=== PATIENT | male | born 1945 | race Caucasian/White ===

== ENCOUNTER 2018-04-06 13:50 | Inpatient (IN) | payer MEDICARE, OTHER, SELFPAY ==
[2018-04-06] VITALS (18 sets, daily range): BP systolic 93–148; BP diastolic 65–87; PULSE 75–146; RESP 15–20; TEMP 36.1–36.7; O2SAT 94–99; BMI 28.5
--- NOTE | 2018-04-06 14:06 | DI.RAD.S_ITS ---
PROCEDURE: XR CHEST 1V INDICATIONS: chest pain TECHNIQUE: One view of the chest was acquired. COMPARISON: None. FINDINGS: Surgical changes and devices: None. Lungs and pleura: No pleural effusions or pneumothorax. Lungs are clear. Mediastinum: Mediastinal contours appear normal. Heart size is normal. Bones and chest wall: No suspicious bony lesions. Overlying soft tissues appear unremarkable. IMPRESSION: No acute cardiopulmonary findings. Dictated by: Darcie Pedroza M.D. on 04/06/2018 at 14:50 Approved by: Darcie Pedroza M.D. on 04/06/2018 at 14:50
--- NOTE | 2018-04-06 14:12 | ED_ITS ---
HPI - Arrhythmia/Palpitations General Chief Complaint: Arrhythmia/Palpitations Stated Complaint: TIGHTNESS IN CHEST, IRREGULAR PULSE Time Seen by Provider: 04/06/18 13:54 Source: patient Mode of arrival: ambulatory Limitations: no limitations History of Present Illness HPI narrative: Patient is a 73-year-old male with a history of atrial fibrillation and atrial flutter with multiple ablation send the past and also a cardioversion. He is on Eliquis 2 times a day. Is also on atenolol 2 times a day. Patient states that since last evening he has had intermittent chest pressure that also noticed last evening that his heart was pounding. Has also reports from his that he was complaining of palpitations approximately 1 week ago. Not exactly sure when the symptoms that he presented with today started however he does state that the chest pain started last evening. Has never had a heart attack before. 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 They called the group earlier today informed him to come to the emergency department. He states that he did take his atenolol earlier today. Related Data Home Medications Medication Instructions Recorded Confirmed apixaban [Eliquis] 10 mg PO DAILY 04/06/18 04/06/18 atenolol 25 mg PO BID 04/06/18 04/06/18 bupropion HCl 150 mg PO DAILY 04/06/18 04/06/18 escitalopram oxalate 20 mg PO DAILY 04/06/18 04/06/18 omeprazole 40 mg PO DAILY 04/06/18 04/06/18 oxycodone-acetaminophen 1 tab PO TID PRN 04/06/18 04/06/18 prednisone 40 mg PO DAILY 04/06/18 04/06/18 tamsulosin 0.4 mg PO DAILY 04/06/18 04/06/18 Allergies Allergy/AdvReac Type Severity Reaction Status Date / Time erythromycin base Allergy Unknown Verified 04/06/18 14:00 Review of Systems Constitutional Reports fatigue and Denies fever(s) Cardiovascular Reports chest pain, Denies chest pain with activity, Denies diaphoresis, Denies syncope, Reports rapid heart rate, Denies pedal edema, Reports irregular heart rhythm, Reports palpitations and Denies dyspnea Respiratory Denies cough, Denies dyspnea and Denies wheezing Gastrointestinal Gastrointestinal: Denies abdominal pain, Denies diarrhea, Denies nausea and Denies vomiting Genitourinary Denies dysuria Musculoskeletal Denies myalgias and Denies arthralgias Integumentary/Breasts Denies rash Neurologic Denies syncope Endocrine Reports fatigue and Reports palpitations Hematologic/Lymphatic Denies easy bleeding and Denies easy bruising Allergic/Immunologic Denies wheezing FOR[facility]LY [facility], [facility] Medical History Atrial fibrillation (Acute) Social History Smoking Status: Never smoker Comment: Reviewed patient's past medical surgical family and social history Exam Initial Vital Signs Initial Vital Signs: Vital Signs Pulse Rate 145 H 04/06/18 13:56 Respiratory Rate 18 04/06/18 13:56 Blood Pressure 131/87 H 04/06/18 13:56 Pulse Oximetry 99 04/06/18 13:56 Const General: cooperative, healthy appearing, comfortable, well developed, well groomed and No acute distress Orientation: alert, awake and oriented x3 HENMT Head: normal to inspection, normocephalic and atraumatic Resp Effort & Inspection: normal respiratory effort Auscultation: clear to auscultation bilaterally Cardio Rate: tachycardic Rhythm: regular rhythm Pulses: radial pulses present GI Inspection: normal to inspection and non-distended Palpation: soft, No firm and No tender Back/Spine/Pelvis Back: No CVA tenderness Skin Lesions: no lesions Rashes: no rashes Neuro General: alert, awake and oriented x3 Extrem General: normal to inspection and capillary refill normal Psych Appearance: grossly normal, well kempt and disheveled Affect: normal affect Course Orders Ordered: ED Orders 04/06/18 12:04 Complete Blood Count AUTO DIFF Stat Comprehensive Metabolic Panel Stat Lipase Stat Partial Thromboplastin Time Stat Prothrombin Time INR Stat Troponin & CK Cardiac Panel Stat 04/06/18 13:53 EKG-12 Lead Routine 04/06/18 14:06 XR chest 1V Stat EKG-12 Lead Stat Diltiazem HCl 125 mg/ Dextrose 125 mls @ 5 mls/hr IV TITRATE SANDRA; Protocol Last Admin: 04/06/18 15:22 Dose: 5 mg/hr, 5 mls/hr Discontinued Medications Aspirin (Aspirin Chew) 324 mg PO NOW ONE Stop: 04/06/18 14:53 Last Admin: 04/06/18 14:55 Dose: 324 mg Diltiazem HCl (Cardizem) 10 mg IV NOW ONE Stop: 04/06/18 15:07 Last Admin: 04/06/18 15:09 Dose: 10 mg Vital Signs - 8 hr 04/06/18 13:56 04/06/18 14:00 04/06/18 14:15 Pulse Rate 145 H 146 H 146 H Respiratory Rate 18 16 19 Blood Pressure 131/87 H Blood Pressure [Left Arm] 106/65 112/79 Pulse Oximetry 99 97 95 04/06/18 14:17 04/06/18 14:30 04/06/18 14:45 Pulse Rate 146 H 146 H 145 H Respiratory Rate 20 18 17 Blood Pressure Blood Pressure [Left Arm] 106/65 93/70 Pulse Oximetry 97 95 96 04/06/18 15:00 04/06/18 15:09 04/06/18 15:15 Pulse Rate 146 H 145 H 90 Respiratory Rate 16 16 Blood Pressure 93/70 Blood Pressure [Left Arm] 112/76 128/74 H Pulse Oximetry 96 94 04/06/18 15:30 04/06/18 15:35 04/06/18 15:42 Pulse Rate 92 H 93 H 101 H Respiratory Rate 16 15 18 Blood Pressure Blood Pressure [Left Arm] 121/79 H 132/78 H 132/78 H Pulse Oximetry 94 96 98 04/06/18 15:45 04/06/18 15:50 04/06/18 16:07 Pulse Rate 96 H 93 H 93 H Respiratory Rate 15 17 17 Blood Pressure Blood Pressure [Left Arm] 122/79 H 122/79 H Pulse Oximetry 96 97 96 04/06/18 16:16 Pulse Rate 75 Respiratory Rate 18 Blood Pressure Blood Pressure [Left Arm] 112/71 Pulse Oximetry MDM - Arrhythmia/Palpitations Lab Data Attestation: I reviewed the patient's lab results. Result diagrams: 04/06/18 12:04 04/06/18 12:04 Lab Results 04/06/18 04/06/18 04/06/18 Range/Units 12:04 12:04 12:04 WBC 16.5 H (4.5-11.0) X10^3/uL RBC 4.41 L (4.5-5.9) X10^6/uL Hgb 13.6 (13.5-17.5) g/dL Hct 41.1 (41-53) % MCV 93.0 (80-100) fL MCH 30.7 (26-34) PG MCHC 33.0 (30-36) % RDW 14.0 (11.6-14.8) % Plt Count 279 (150-400) X10^3/uL Neut % (Auto) 86.7 H (50-75) % Lymph % (Auto) 9.2 L (25-40) % Banks % (Auto) 3.4 (3-14) % Eos % (Auto) 0.2 L (2-4) % Baso % (Auto) 0.5 (0-2) % Neut # (Auto) 31804 H (0187-5164) /uL PT 12.5 (10.1-12.7) SECONDS INR 1.1 (0.9-1.3) APTT 32 (26.4-36.2) SECONDS Sodium 138 (137-145) mmol/L Potassium 4.6 (3.4-5.1) mmol/L Chloride 101 (98-107) mmol/L Carbon Dioxide 22 (22-32) mmol/L BUN 22 H (9-20) mg/dL Creatinine 0.90 (0.66-1.25) mg/dL Estimated GFR > 60.0 (>60) mL/min BUN/Creatinine Ratio 24.4 H (6-22) Glucose 178 H (80-110) mg/dL Calcium 9.4 (8.4-10.2) mg/dL Total Bilirubin 0.4 (0.2-1.3) mg/dL AST 39 (17-59) IU/L ALT 59 (21-72) IU/L Alkaline Phosphatase 64 (38-126) U/L Total Creatine Kinase 66 (55-170) U/L Troponin I 0.076 H (0.01-0.034) ng/mL Total Protein 7.3 (6.3-8.2) g/dL Albumin 4.3 (3.5-5.0) g/dL Globulin 3.0 (1.7-4.1) g/dL Albumin/Globulin Ratio 1.4 (1.0-2.8) Lipase 74 (23-300) U/L ECG Data Attestation: I personally reviewed and interpreted this ECG as follows: Prior ECG tracings: not available for review Interpretation: A flutter Ventricular rate of [address] depressions V3 V4 V5 [address] T wave changes QTC 370 QRS 108 milliseconds MDM Narrative Medical decision making narrative: I [facility] They do not have any beds today. Patient was tachycardic. His troponin was also slightly elevated however this may be a demand ischemia. The ST depressions could very well be repolarization abnormalities. Patient states that he cannot definitively say that he has been taking his Eliquis 2 times a day over the past month. There is also some question as to how long he has been in atrial flutter. There is also some question after the discussion with the gear tooth lapping machine operator if cardioversion here in the emergency department would be successful if he has been in and out of AFib/ a flutter over the past week. Will hold on cardioversion. Will opt for rate control. Because of his elevated troponin will start Cardizem. Patient also needs admitted to the hospital for trending of his troponin. I did discuss the case with Dr. Chu hospitalist who will admit the patient. Discharge Plan Departure Patient Disposition: Admitted As Inpatient Clinical Impression: Atrial flutter, Chest pain Admit Date/Time: 04/06/18 15:55 Admit Provider: Sadie Chu
[2018-04-06 14:18] LABS: Add Manual Diff / Slide Review NO; Basophils Percent Auto 0.5 % (0-2); Eosinophils Percent Auto 0.2 % (2-4); Hematocrit 41.1 % (41-53); Hemoglobin 13.6 g/dL (13.5-17.5); Lymphocytes Percent Auto 9.2 % (25-40); Mean Corpuscular Hemoglobin 30.7 PG (26-34); Monocytes Percent Auto 3.4 % (3-14); Neutrophils Absolute Auto 14300 /uL (3000-5900); Neutrophils Percent Auto 86.7 % (50-75); Platelet Count 279 X10^3/uL (150-400); Red Blood Cell Count 4.41 X10^6/uL (4.5-5.9); White Blood Cell Count 16.5 X10^3/uL (4.5-11.0)
[2018-04-06 14:27] LABS: INR 1.1 (0.9-1.3); Prothrombin Time 12.5 SECONDS (10.1-12.7)
[2018-04-06 14:29] LABS: PTT Partial Thromboplastin Tim 32 SECONDS (26.4-36.2)
[2018-04-06 14:42] LABS: Troponin I 0.076 ng/mL (0.01-0.034)
[2018-04-06 14:47] LABS: Alanine Aminotransferase 59 IU/L (21-72); Albumin 4.3 g/dL (3.5-5.0); Albumin Globulin Ratio 1.4 (1.0-2.8); Alkaline Phosphatase 64 U/L (38-126); Aspartate Aminotransferase 39 IU/L (17-59); BUN Creatinine Ratio 24.4 (6-22); Bilirubin Total 0.4 mg/dL (0.2-1.3); Blood Urea Nitrogen 22 mg/dL (9-20); Calcium 9.4 mg/dL (8.4-10.2); Carbon Dioxide 22 mmol/L (22-32); Chloride 101 mmol/L (98-107); Creatine Kinase 66 U/L (55-170); Estimated Glomerular Filt Rate > 60.0 mL/min (>60); Glucose 178 mg/dL (80-110); HEMOLYSIS < 15 (0-50); Lipase 74 U/L (23-300); Potassium 4.6 mmol/L (3.4-5.1); Sodium 138 mmol/L (137-145); Total Protein 7.3 g/dL (6.3-8.2)
[2018-04-06] MEDS: ASPIRIN 81 MG TAB 324 MG PO (14:55)
[2018-04-06] MEDS: dilTIAZem 25 MG/5 ML SDV 10 MG IV (15:09)
[2018-04-06] MEDS: dilTIAZem 125 MG in DEXTROSE 5 % IN WATER 100 ML IV (15:22)
[2018-04-06] MEDS: dilTIAZem CD 180 MG CAP PO (17:46)
--- NOTE | 2018-04-06 17:50 | PM.HP.1 ---
History of Present Illness Date Patient Seen: 04/06/18 Time Patient Seen: 17:00 Chief complaint: TIGHTNESS IN CHEST, IRREGULAR PULSE Narrative: 73-year-old man under the primary care of Dr. Ascencion Frank at [facility] who was brought to the [facility] Emergency room earlier today for palpitation and chest pain. He has history of paroxysmal atrial fibrillation/atrial flutter. He had history of cardioversion and ablations. His last cardioversion was more than a year ago. A week ago, he woke up from sleep with palpitation and chest pain in the middle of the chest. He rested and the symptoms resolved. Last night he started having palpitation. He also was having anterior chest pain. The severity of the pain was rated at 6 to 6.5/10. He did not have diaphoresis or shortness of breath. The pain lasted for more than an hour and resolved. This morning he continued to have irregular pulse and mild chest pressure. He was brought to the [facility] Emergency Room. EKG showed atrial flutter/atrial fibrillation with ventricular rate around 110. He was started on diltiazem drip and was admitted to the intensive care unit. He was recently started on oral prednisone for empiric treatment for possible temporal arteritis. He had a temporal artery biopsy last Sunday which was 4 days ago. Patient History Medical History Atrial fibrillation (Acute) Comment: Paroxysmal atrial fibrillation/atrial flutter Gout Mckeon's neuroma Kidney stone Depression PMR Obstructive sleep apnea, on CPAP Shingles Family & Social History Safety & Behavioral: Feels Safe in Current Yes Environment Been Physically Hurt or No Threatened By a Person Tobacco & Substance use: Smoking Status Never smoker alcohol intake frequency 0-2 drinks per day Substance Use Type does not use Meds Home Medications Medication Instructions Recorded Confirmed Type apixaban [Eliquis] 10 mg PO DAILY 04/06/18 04/06/18 History atenolol 25 mg PO BID 04/06/18 04/06/18 History bupropion HCl 150 mg PO DAILY 04/06/18 04/06/18 History escitalopram oxalate 20 mg PO DAILY 04/06/18 04/06/18 History omeprazole 40 mg PO DAILY 04/06/18 04/06/18 History oxycodone-acetaminophen 1 tab PO TID PRN 04/06/18 04/06/18 History prednisone 40 mg PO DAILY 04/06/18 04/06/18 History tamsulosin 0.4 mg PO DAILY 04/06/18 04/06/18 History Allergies Allergy/AdvReac Type Severity Reaction Status Date / Time erythromycin base Allergy Unknown Verified 04/06/18 14:00 Review of Systems Constitutional Comments: No fever chills or sweats Cardiovascular Cardiovascular: Reports as per HPI Respiratory Comments: No cough Gastrointestinal Comments: Denies abdominal pain. No nausea or vomiting Genitourinary Comments: Denies dysuria Musculoskeletal Comments: Chronic shoulder pain Exam Vital Signs (past 8 hours): - 04/06/18 13:56 04/06/18 14:00 04/06/18 14:15 Pulse Rate 145 H 146 H 146 H Respiratory Rate 18 16 19 Blood Pressure 131/87 H Blood Pressure [Left Arm] 106/65 112/79 Pulse Oximetry 99 97 95 04/06/18 14:17 04/06/18 14:30 04/06/18 14:45 Pulse Rate 146 H 146 H 145 H Respiratory Rate 20 18 17 Blood Pressure Blood Pressure [Left Arm] 106/65 93/70 Pulse Oximetry 97 95 96 04/06/18 15:00 04/06/18 15:09 04/06/18 15:15 Pulse Rate 146 H 145 H 90 Respiratory Rate 16 16 Blood Pressure 93/70 Blood Pressure [Left Arm] 112/76 128/74 H Pulse Oximetry 96 94 04/06/18 15:30 04/06/18 15:35 04/06/18 15:42 Pulse Rate 92 H 93 H 101 H Respiratory Rate 16 15 18 Blood Pressure Blood Pressure [Left Arm] 121/79 H 132/78 H 132/78 H Pulse Oximetry 94 96 98 04/06/18 15:45 04/06/18 15:50 04/06/18 16:07 Pulse Rate 96 H 93 H 93 H Respiratory Rate 15 17 17 Blood Pressure Blood Pressure [Left Arm] 122/79 H 122/79 H Pulse Oximetry 96 97 96 04/06/18 16:16 Pulse Rate 75 Respiratory Rate 18 Blood Pressure Blood Pressure [Left Arm] 112/71 Pulse Oximetry Oxygen Delivery Method Room Air Narrative Exam Narrative: GENERAL: Well-appearing, well-nourished and in no acute distress. HEENT: Head normocephalic, atraumatic. Eyes pupils equal round NECK: Supple, no JVD, CHEST: Breath sounds equal bilaterally, no wheezes rales or rhonchi. CARDIAC: Irregular rhythm without murmurs, rubs or gallops. ABDOMEN: Soft, nontender. Normoactive bowel sounds all 4 quadrants. No guarding or rebound. EXTREMITIES: Normal range of motion, no clubbing or edema. NEUROLOGICAL: Alert and oriented; Normal muscle strength. SKIN: Warm, dry, no petechiae, no rashes or lesions. Objective Imaging EKG: ECG: Atrial flutter with rapid ventricular response, ventricular rate was 145. CXR: Radiologist's impression: No acute cardiopulmonary findings. Labs Result Diagrams: 04/06/18 12:04 04/06/18 12:04 Labs: Laboratory Results - last 24 hr 04/06/18 04/06/18 04/06/18 12:04 12:04 12:04 WBC 16.5 H RBC 4.41 L Hgb 13.6 Hct 41.1 MCV 93.0 MCH 30.7 MCHC 33.0 RDW 14.0 Plt Count 279 Neut % (Auto) 86.7 H Lymph % (Auto) 9.2 L Colbert % (Auto) 3.4 Eos % (Auto) 0.2 L Baso % (Auto) 0.5 Neut # (Auto) 31935 H PT 12.5 INR 1.1 APTT 32 Sodium 138 Potassium 4.6 Chloride 101 Carbon Dioxide 22 BUN 22 H Creatinine 0.90 Estimated GFR > 60.0 BUN/Creatinine Ratio 24.4 H Glucose 178 H Calcium 9.4 Total Bilirubin 0.4 AST 39 ALT 59 Alkaline Phosphatase 64 Total Creatine Kinase 66 Troponin I 0.076 H Total Protein 7.3 Albumin 4.3 Globulin 3.0 Albumin/Globulin Ratio 1.4 Lipase 74 Assessment & Plan Plan: Assessment/Plan Narrative: 1. Atrial flutter/atrial fibrillation with rapid ventricular response: He was started on diltiazem drip. Continue atenolol. We will also start him on oral diltiazem. Wean him off diltiazem drip is able. Continue Eliquis for anticoagulation. He will follow up with his rail filler at [facility] for management of his atrial flutter/atrial fibrillation. 2. Chest pain: He does have mildly elevated troponin. It is most likely demand ischemia. Continue rate control. Use nitroglycerin as needed for chest pain. We will check serial troponins to rule out [place]. 3. 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 He is currently on prednisone 40 mg daily. Continue prednisone. 4. Obstructive sleep apnea: Continue CPAP at night when he sleeps. 5. Chronic shoulder pain: Continue Percocet per outpatient dosing for pain control.
--- NOTE | 2018-04-06 17:59 | P.HP_ITS ---
History of Present Illness Date Patient Seen: 04/06/18 Time Patient Seen: 17:00 Chief complaint: TIGHTNESS IN CHEST, IRREGULAR PULSE Narrative: 73-year-old man under the primary care of Dr. Ascencion Frank at [facility] who was brought to the [facility] Emergency room earlier today for palpitation and chest pain. He has history of paroxysmal atrial fibrillation/atrial flutter. He had history of cardioversion and ablations. His last cardioversion was more than a year ago. A week ago, he woke up from sleep with palpitation and chest pain in the middle of the chest. He rested and the symptoms resolved. Last night he started having palpitation. He also was having anterior chest pain. The severity of the pain was rated at 6 to 6.5/ 10. He did not have diaphoresis or shortness of breath. The pain lasted for more than an hour and resolved. This morning he continued to have irregular pulse and mild chest pressure. He was brought to the [facility] Emergency Room. EKG showed atrial flutter/atrial fibrillation with ventricular rate around 110. He was started on diltiazem drip and was admitted to the intensive care unit. He was recently started on oral prednisone for empiric treatment for possible temporal arteritis. He had a temporal artery biopsy last Sunday which was 4 days ago. Patient History Medical History Atrial fibrillation (Acute) Comment: Paroxysmal atrial fibrillation/atrial flutter Gout Mckeon's neuroma Kidney stone Depression PMR Obstructive sleep apnea, on CPAP Shingles Family & Social History Safety & Behavioral: Feels Safe in Current Yes Environment Been Physically Hurt or No Threatened By a Person Tobacco & Substance use: Smoking Status Never smoker alcohol intake frequency 0-2 drinks per day Substance Use Type does not use Meds Home Medications Medication Instructions Recorded Confirmed Type apixaban [Eliquis] 10 mg PO DAILY 04/06/18 04/06/18 History atenolol 25 mg PO BID 04/06/18 04/06/18 History bupropion HCl 150 mg PO DAILY 04/06/18 04/06/18 History escitalopram oxalate 20 mg PO DAILY 04/06/18 04/06/18 History omeprazole 40 mg PO DAILY 04/06/18 04/06/18 History oxycodone-acetaminophen 1 tab PO TID PRN 04/06/18 04/06/18 History prednisone 40 mg PO DAILY 04/06/18 04/06/18 History tamsulosin 0.4 mg PO DAILY 04/06/18 04/06/18 History Allergies Allergy/AdvReac Type Severity Reaction Status Date / Time erythromycin base Allergy Unknown Verified 04/06/18 14:00 Review of Systems Constitutional Comments: No fever chills or sweats Cardiovascular Cardiovascular: Reports as per HPI Respiratory Comments: No cough Gastrointestinal Comments: Denies abdominal pain. No nausea or vomiting Genitourinary Comments: Denies dysuria Musculoskeletal Comments: Chronic shoulder pain Exam Vital Signs (past 8 hours): - 04/06/18 13:56 04/06/18 14:00 04/06/18 14:15 Pulse Rate 145 H 146 H 146 H Respiratory Rate 18 16 19 Blood Pressure 131/87 H Blood Pressure [Left Arm] 106/65 112/79 Pulse Oximetry 99 97 95 04/06/18 14:17 04/06/18 14:30 04/06/18 14:45 Pulse Rate 146 H 146 H 145 H Respiratory Rate 20 18 17 Blood Pressure Blood Pressure [Left Arm] 106/65 93/70 Pulse Oximetry 97 95 96 04/06/18 15:00 04/06/18 15:09 04/06/18 15:15 Pulse Rate 146 H 145 H 90 Respiratory Rate 16 16 Blood Pressure 93/70 Blood Pressure [Left Arm] 112/76 128/74 H Pulse Oximetry 96 94 04/06/18 15:30 04/06/18 15:35 04/06/18 15:42 Pulse Rate 92 H 93 H 101 H Respiratory Rate 16 15 18 Blood Pressure Blood Pressure [Left Arm] 121/79 H 132/78 H 132/78 H Pulse Oximetry 94 96 98 04/06/18 15:45 04/06/18 15:50 04/06/18 16:07 Pulse Rate 96 H 93 H 93 H Respiratory Rate 15 17 17 Blood Pressure Blood Pressure [Left Arm] 122/79 H 122/79 H Pulse Oximetry 96 97 96 04/06/18 16:16 Pulse Rate 75 Respiratory Rate 18 Blood Pressure Blood Pressure [Left Arm] 112/71 Pulse Oximetry Oxygen Delivery Method Room Air Narrative Exam Narrative: GENERAL: Well-appearing, well-nourished and in no acute distress. HEENT: Head normocephalic, atraumatic. Eyes pupils equal round NECK: Supple, no JVD, CHEST: Breath sounds equal bilaterally, no wheezes rales or rhonchi. CARDIAC: Irregular rhythm without murmurs, rubs or gallops. ABDOMEN: Soft, nontender. Normoactive bowel sounds all 4 quadrants. No guarding or rebound. EXTREMITIES: Normal range of motion, no clubbing or edema. NEUROLOGICAL: Alert and oriented; Normal muscle strength. SKIN: Warm, dry, no petechiae, no rashes or lesions. Objective Imaging EKG: ECG: Atrial flutter with rapid ventricular response, ventricular rate was 145. CXR: Radiologist's impression: No acute cardiopulmonary findings. Labs Result Diagrams: 04/06/18 12:04 04/06/18 12:04 Labs: Laboratory Results - last 24 hr 04/06/18 04/06/18 04/06/18 12:04 12:04 12:04 WBC 16.5 H RBC 4.41 L Hgb 13.6 Hct 41.1 MCV 93.0 MCH 30.7 MCHC 33.0 RDW 14.0 Plt Count 279 Neut % (Auto) 86.7 H Lymph % (Auto) 9.2 L Travis % (Auto) 3.4 Eos % (Auto) 0.2 L Baso % (Auto) 0.5 Neut # (Auto) 81297 H PT 12.5 INR 1.1 APTT 32 Sodium 138 Potassium 4.6 Chloride 101 Carbon Dioxide 22 BUN 22 H Creatinine 0.90 Estimated GFR > 60.0 BUN/Creatinine Ratio 24.4 H Glucose 178 H Calcium 9.4 Total Bilirubin 0.4 AST 39 ALT 59 Alkaline Phosphatase 64 Total Creatine Kinase 66 Troponin I 0.076 H Total Protein 7.3 Albumin 4.3 Globulin 3.0 Albumin/Globulin Ratio 1.4 Lipase 74 Assessment & Plan Plan: Assessment/Plan Narrative: 1. Atrial flutter/atrial fibrillation with rapid ventricular response: He was started on diltiazem drip. Continue atenolol. We will also start him on oral diltiazem. Wean him off diltiazem drip is able. Continue Eliquis for anticoagulation. He will follow up with his lease examiner at [facility] for management of his atrial flutter/atrial fibrillation. 2. Chest pain: He does have mildly elevated troponin. It is most likely demand ischemia. Continue rate control. Use nitroglycerin as needed for chest pain. We will check serial troponins to rule out [place]. 3. 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 He is currently on prednisone 40 mg daily. Continue prednisone. 4. Obstructive sleep apnea: Continue CPAP at night when he sleeps. 5. Chronic shoulder pain: Continue Percocet per outpatient dosing for pain control.
[2018-04-06 18:44] LABS: Troponin I 0.108 ng/mL (0.01-0.034)
[2018-04-06 19:22] LABS: TSH w/ Reflex to FT4 0.47 uIU/mL (0.47-4.68)
--- NOTE | 2018-04-06 20:54 | PC.NURSE ---
2054-Patient assisted up to the bathroom. Patient asked if he was ok and he responded no I think I am having a problem. During void patient noticed elan bleeding coming from the penis. Patient has not had any caballero catheter and no trauma to this area. Dr. Chu notified and order to hold eloquis for tonight was obtained. Patient denies pain and states he had no problem initiating a flow. Will monitor.
[2018-04-06] MEDS: ATENOLOL 25 MG TABLET PO (21:02)
[2018-04-06] MEDS: OXYCODONE/ACETAMINOPHEN 5/325 TABLET 1 TAB PO (21:04)
--- NOTE | 2018-04-06 22:31 | PC.NURSE ---
2229-Multiple calls out to hospitalist to give triponin results. No call recieved. Third triponin ordered per protocol with esign request. Will monitor.
[2018-04-07] VITALS (9 sets, daily range): BP systolic 90–138; BP diastolic 55–81; PULSE 74–91; RESP 10–18; TEMP 36.6–36.8; O2SAT 92–98
[2018-04-07 00:34] LABS: Troponin I 0.173 ng/mL (0.01-0.034)
[2018-04-07 05:26] LABS: Troponin I 0.195 ng/mL (0.01-0.034)
[2018-04-07] MEDS: APIXABAN 5 MG TABLET PO (08:15)
[2018-04-07] MEDS: TAMSULOSIN 0.4 MG CAPSULE PO (08:16)
[2018-04-07] MEDS: predniSONE 20 MG TABLET 40 MG PO (08:16)
[2018-04-07] MEDS: ESCITALOPRAM 10 MG TABLET 20 MG PO (08:16)
[2018-04-07] MEDS: PANTOPRAZOLE 40 MG TABLET PO (08:16)
[2018-04-07] MEDS: dilTIAZem CD 180 MG CAP PO (08:16)
[2018-04-07] MEDS: buPROPion XL 150 MG TAB PO (08:16)
[2018-04-07] MEDS: ATENOLOL 25 MG TABLET PO (08:16)
--- NOTE | 2018-04-07 08:32 | PC.NURSE ---
Addendum entered by Markus Ozuna R.N. 04/07/18 09:39: Pt stood to void per urinal. Clear yellow urine noted but at the end of urination, small/scant amount of blood noted. Will address with MD on rounds. Original Note: Dilt gtt titrated to off with administration of AM meds. Per report, pt HR dropped into 40s with dilt gtt @ 5mg/hr. Pt currently in 3:1 Aflutter with rates in the 70s at rest and 90s with activity. He stands at bedside to void per urinal. No blood noted at this time. Administered eliquis per order. VSS. Pt denies pain, palpitations, chest pain, chest pressure. Call light in reach.
[2018-04-07 10:50] LABS: Troponin I 0.168 ng/mL (0.01-0.034)
--- NOTE | 2018-04-07 13:35 | PM.DS.1 ---
History of Present Illness Chief complaint: TIGHTNESS IN CHEST, IRREGULAR PULSE Narrative: 73-year-old man under the primary care of Dr. Ascencion Frank at [facility] who was brought to the [facility] Emergency room earlier today for palpitation and chest pain. He has history of paroxysmal atrial fibrillation/atrial flutter. He had history of cardioversion and ablations. His last cardioversion was more than a year ago. A week ago, he woke up from sleep with palpitation and chest pain in the middle of the chest. He rested and the symptoms resolved. Last night he started having palpitation. He also was having anterior chest pain. The severity of the pain was rated at 6 to 6.5/10. He did not have diaphoresis or shortness of breath. The pain lasted for more than an hour and resolved. This morning he continued to have irregular pulse and mild chest pressure. He was brought to the [facility] Emergency Room. EKG showed atrial flutter/atrial fibrillation with ventricular rate around 110. He was started on diltiazem drip and was admitted to the intensive care unit. He was recently started on oral prednisone for empiric treatment for possible temporal arteritis. He had a temporal artery biopsy last Sunday which was 4 days ago. Discharge Providers Date of admission: 04/06/18 15:55 Discharge provider: Sadie hCu MD Discharge Date: 04/07/18 Summary Discharge Diagnosis: 1. Atrial flutter with rapid ventricular response 2. Chest pain with mildly elevated troponin, possibly secondary to demand ischemia 3. Obstructive sleep apnea 4. Chronic shoulder pain Hospital Course: Patient was found to have atrial flutter with ventricular rate of 140 at the emergency room. He was initially started on diltiazem drip. He was transitioned to oral diltiazem at 180 mg daily in addition to the atenolol that he was taking. His ventricular rate is better controlled. Currently his ventricular rate is around 75. He continues to be in a flutter rhythm. His troponin was noticed to be mildly elevated. Troponin peaked at 0.195 on April 07, 2018 at 4:00 a.m.. Subsequent troponin was trending down. He did have chest pain when he was having tachycardia. He was continued on Eliquis for anticoagulation. He was noticed to have bleeding from he is urethra in the evening of April 06, 2018. The evening dose of Eliquis was held. He continued to have mild bleeding from his penis. No apparent trauma prior to the onset of bleeding. He did receive Eliquis in the morning of April 07, 2018. I have asked him to stay on once a day Eliquis dosing until his bleeding stops, then he can increase the dose to 5 mg twice a day. Status at Discharge Cognitive/behavioral status at discharge: Alert and oriented x3 Functional status at discharge: independent ambulation Overall status at discharge: patient is not back to baseline Time Spent with Patient Greater than 30 minutes Exam Vital Signs (past 8 hours): - 04/07/18 06:02 04/07/18 08:00 04/07/18 12:50 Temperature 97.8 F 98.3 F Pulse Rate 75 78 75 Respiratory Rate 10 L 16 16 Blood Pressure 90/55 L 131/81 H 120/69 Pulse Oximetry 96 98 Oxygen Delivery Method Room Air Oxygen Flow Rate 0 Objective Labs Result Diagrams: 04/06/18 12:04 04/06/18 12:04 Labs: Laboratory Results - last 24 hr 04/06/18 04/06/18 04/06/18 12:04 12:04 12:04 WBC 16.5 H RBC 4.41 L Hgb 13.6 Hct 41.1 MCV 93.0 MCH 30.7 MCHC 33.0 RDW 14.0 Plt Count 279 Neut % (Auto) 86.7 H Lymph % (Auto) 9.2 L [place] % (Auto) 3.4 Eos % (Auto) 0.2 L Baso % (Auto) 0.5 Neut # (Auto) 97650 H PT 12.5 INR 1.1 APTT 32 Sodium 138 Potassium 4.6 Chloride 101 Carbon Dioxide 22 BUN 22 H Creatinine 0.90 Estimated GFR > 60.0 BUN/Creatinine Ratio 24.4 H Glucose 178 H Calcium 9.4 Total Bilirubin 0.4 AST 39 ALT 59 Alkaline Phosphatase 64 Total Creatine Kinase 66 Troponin I 0.076 H Total Protein 7.3 Albumin 4.3 Globulin 3.0 Albumin/Globulin Ratio 1.4 Lipase 74 TSH Nasal Screen MRSA (PCR) 04/06/18 04/06/18 04/06/18 16:30 18:15 18:15 WBC RBC Hgb Hct MCV MCH MCHC RDW Plt Count Neut % (Auto) Lymph % (Auto) [place] % (Auto) Eos % (Auto) Baso % (Auto) Neut # (Auto) PT INR APTT Sodium Potassium Chloride Carbon Dioxide BUN Creatinine Estimated GFR BUN/Creatinine Ratio Glucose Calcium Total Bilirubin AST ALT Alkaline Phosphatase Total Creatine Kinase Troponin I 0.108 H Total Protein Albumin Globulin Albumin/Globulin Ratio Lipase TSH 0.47 Nasal Screen MRSA (PCR) Negative for mrsa 04/06/18 04/07/18 04/07/18 23:56 04:30 10:15 WBC RBC Hgb Hct MCV MCH MCHC RDW Plt Count Neut % (Auto) Lymph % (Auto) [place] % (Auto) Eos % (Auto) Baso % (Auto) Neut # (Auto) PT INR APTT Sodium Potassium Chloride Carbon Dioxide BUN Creatinine Estimated GFR BUN/Creatinine Ratio Glucose Calcium Total Bilirubin AST ALT Alkaline Phosphatase Total Creatine Kinase Troponin I 0.173 H* 0.195 H* 0.168 H* Total Protein Albumin Globulin Albumin/Globulin Ratio Lipase TSH Nasal Screen MRSA (PCR) Discharge Plan Discharge Plan Discharge Problem: Atrial flutter, Chest pain Patient Disposition: Home, Self-Care Provider Discharge Instructions Diet: Low-cholesterol Activity: As tolerated Discharge Data Attending Provider: Sadie Chu Admit Date/Time: 04/06/18 15:55 Quality VTE Deep Vein Thrombosis/Pulmonary Embolism Present on Admission: No
--- NOTE | 2018-04-07 13:42 | P.DS_ITS ---
History of Present Illness Chief complaint: TIGHTNESS IN CHEST, IRREGULAR PULSE Narrative: 73-year-old man under the primary care of Dr. Ascencion Frank at [facility] who was brought to the [facility] Emergency room earlier today for palpitation and chest pain. He has history of paroxysmal atrial fibrillation/atrial flutter. He had history of cardioversion and ablations. His last cardioversion was more than a year ago. A week ago, he woke up from sleep with palpitation and chest pain in the middle of the chest. He rested and the symptoms resolved. Last night he started having palpitation. He also was having anterior chest pain. The severity of the pain was rated at 6 to 6.5/ 10. He did not have diaphoresis or shortness of breath. The pain lasted for more than an hour and resolved. This morning he continued to have irregular pulse and mild chest pressure. He was brought to the [facility] Emergency Room. EKG showed atrial flutter/atrial fibrillation with ventricular rate around 110. He was started on diltiazem drip and was admitted to the intensive care unit. He was recently started on oral prednisone for empiric treatment for possible temporal arteritis. He had a temporal artery biopsy last Sunday which was 4 days ago. Discharge Providers Date of admission: 04/06/18 15:55 Discharge provider: Sadie Chu MD Discharge Date: 04/07/18 Summary Discharge Diagnosis: 1. Atrial flutter with rapid ventricular response 2. Chest pain with mildly elevated troponin, possibly secondary to demand ischemia 3. Obstructive sleep apnea 4. Chronic shoulder pain Hospital Course: Patient was found to have atrial flutter with ventricular rate of 140 at the emergency room. He was initially started on diltiazem drip. He was transitioned to oral diltiazem at 180 mg daily in addition to the atenolol that he was taking. His ventricular rate is better controlled. Currently his ventricular rate is around 75. He continues to be in a flutter rhythm. His troponin was noticed to be mildly elevated. Troponin peaked at 0.195 on March at 4:00 a.m.. Subsequent troponin was trending down. He did have chest pain when he was having tachycardia. He was continued on Eliquis for anticoagulation. He was noticed to have bleeding from he is urethra in the evening of April 06, 2018. The evening dose of Eliquis was held. He continued to have mild bleeding from his penis. No apparent trauma prior to the onset of bleeding. He did receive Eliquis in the morning of April 07, 2018. I have asked him to stay on once a day Eliquis dosing until his bleeding stops, then he can increase the dose to 5 mg twice a day. Status at Discharge Cognitive/behavioral status at discharge: Alert and oriented x3 Functional status at discharge: independent ambulation Overall status at discharge: patient is not back to baseline Time Spent with Patient Greater than 30 minutes Exam Vital Signs (past 8 hours): - 04/07/18 06:02 04/07/18 08:00 04/07/18 12:50 Temperature 97.8 F 98.3 F Pulse Rate 75 78 75 Respiratory Rate 10 L 16 16 Blood Pressure 90/55 L 131/81 H 120/69 Pulse Oximetry 96 98 Oxygen Delivery Method Room Air Oxygen Flow Rate 0 Objective Labs Result Diagrams: 04/06/18 12:04 04/06/18 12:04 Labs: Laboratory Results - last 24 hr 04/06/18 04/06/18 04/06/18 12:04 12:04 12:04 WBC 16.5 H RBC 4.41 L Hgb 13.6 Hct 41.1 MCV 93.0 MCH 30.7 MCHC 33.0 RDW 14.0 Plt Count 279 Neut % (Auto) 86.7 H Lymph % (Auto) 9.2 L [place] % (Auto) 3.4 Eos % (Auto) 0.2 L Baso % (Auto) 0.5 Neut # (Auto) 10220 H PT 12.5 INR 1.1 APTT 32 Sodium 138 Potassium 4.6 Chloride 101 Carbon Dioxide 22 BUN 22 H Creatinine 0.90 Estimated GFR > 60.0 BUN/Creatinine Ratio 24.4 H Glucose 178 H Calcium 9.4 Total Bilirubin 0.4 AST 39 ALT 59 Alkaline Phosphatase 64 Total Creatine Kinase 66 Troponin I 0.076 H Total Protein 7.3 Albumin 4.3 Globulin 3.0 Albumin/Globulin Ratio 1.4 Lipase 74 TSH Nasal Screen MRSA (PCR) 04/06/18 04/06/18 04/06/18 16:30 18:15 18:15 WBC RBC Hgb Hct MCV MCH MCHC RDW Plt Count Neut % (Auto) Lymph % (Auto) [place] % (Auto) Eos % (Auto) Baso % (Auto) Neut # (Auto) PT INR APTT Sodium Potassium Chloride Carbon Dioxide BUN Creatinine Estimated GFR BUN/Creatinine Ratio Glucose Calcium Total Bilirubin AST ALT Alkaline Phosphatase Total Creatine Kinase Troponin I 0.108 H Total Protein Albumin Globulin Albumin/Globulin Ratio Lipase TSH 0.47 Nasal Screen MRSA (PCR) Negative for mrsa 04/06/18 04/07/18 04/07/18 23:56 04:30 10:15 WBC RBC Hgb Hct MCV MCH MCHC RDW Plt Count Neut % (Auto) Lymph % (Auto) [place] % (Auto) Eos % (Auto) Baso % (Auto) Neut # (Auto) PT INR APTT Sodium Potassium Chloride Carbon Dioxide BUN Creatinine Estimated GFR BUN/Creatinine Ratio Glucose Calcium Total Bilirubin AST ALT Alkaline Phosphatase Total Creatine Kinase Troponin I 0.173 H* 0.195 H* 0.168 H* Total Protein Albumin Globulin Albumin/Globulin Ratio Lipase TSH Nasal Screen MRSA (PCR) Discharge Plan Discharge Plan Discharge Problem: Atrial flutter, Chest pain Patient Disposition: Home, Self-Care Provider Discharge Instructions Diet: Low-cholesterol Activity: As tolerated Discharge Data Attending Provider: Sadie Chu Admit Date/Time: 04/06/18 15:55 Quality VTE Deep Vein Thrombosis/Pulmonary Embolism Present on Admission: No
--- NOTE | 2018-04-07 13:56 | CM.DANOTE ---
DCP/Assessment: Reviewed chart. Patient is a 73yr old male admitted to [facility] with chest pain. Primary payor is 1)[facility]. PCP is Dr. Ascencion Martel at . Met with patient explained CM/SW role. Patient sitting in recliner alert and oriented at time of visit. Patient reports that he resides with his spouse/Antonio and plans to discharge home when medically stable. Patient reports that he is very I with all ADL's. Patient does not anticipate any d/c planning needs. Spoke with RN and she confirms the above. Anticipate d/c within the next 24-48hrs if patient remains stable. CM steam table associate placed on white board with phone number and plan. P: Home when stable. Discharge Planning/Care Management CM Discharge Assessment Start: 04/07/18 13:54 Freq: Status: Active Protocol: Document 04/07/18 13:54 KJS (Rec: 04/07/18 13:56 KJS [id number]) Discharge Planning Assessment Assigned Ball Assembler RHIANNON/Pau History Provided By Patient Has Patient been admitted in last 30 No days? Prior Living Arrangements House Household Members spouse Type of transporation used prior to Drives own vehicle admit Independent with ADL's Yes Is patient alert and oriented? Yes Caregiver for Another No Discharge Plan Home Transportation Arrangement Spouse to provide transport home. Review Status Complete Next Review Type Continued Stay Review
--- NOTE | 2018-04-07 14:32 | PC.NURSE ---
Pt to d/c home per MD orders. at bedside for teaching. Reviewed d/c packet, med list, stroke education, diltiazem medication, Aflutter education, when to seek emergency medical treatment. Instructed pt to call for f/u appt with loss prevention lead tomorrow per verbal order by Dr. Chu. Pt and verbalize understanding of teaching. All belongings gathered. Pt able to dress self. Will escort to POV when ready.
== END 2018-04-07 14:54 | disposition home or self-care (01) | DRG 309 ==
LOC: ED 15:10 → ICU 15:56
PROVIDERS: Admitting Provider Internal Medicine; Emergency Provider Emergency Medicine; Visit Provider Internal Medicine
DX: I48.92 Unspecified atrial flutter (principal); I24.8 Other forms of acute ischemic heart disease; G47.33 Obstructive sleep apnea (adult) (pediatric); M25.519 Pain in unspecified shoulder; N36.8 Other specified disorders of urethra
CPT/HCPCS: 36415; 36591; 71045; 80053; 82550; 82553; 83690; 84443; 84484; 85025; 85610; 85730; 87797; 93005; 96374; 99285

== ENCOUNTER 2019-09-20 09:25 | Emergency (ER) | payer MEDICARE, OTHER, SELFPAY ==
[2018-04-06 17:55] VITALS: BMI 28.5
[2019-09-20 09:34] VITALS: BP 141/80; PULSE 123; RESP 17; TEMP 36.1; O2SAT 97; BMI 29.2
--- NOTE | 2019-09-20 09:40 | ED_ITS ---
HPI - Arrhythmia/Palpitations General Chief Complaint: Arrhythmia/Palpitations Stated Complaint: IRREGULAR PULSE, LIGHTHEADEDNESS Time Seen by Provider: 09/20/19 09:26 Source: patient Mode of arrival: Ambulatory Limitations: no limitations History of Present Illness HPI narrative: 74-year-old male former smoker with history of atrial fibrillation is anticoagulated presents with a chief complaint of palpitations and a rapid heart rate over the course of the morning. He went to bed in his normal state of health and upon waking felt the palpitations as well as some dizziness and lightheadedness. He denies any chest pain or significant shortness of breath. He has the diagnosis of paroxysmal AFib and is followed by cardiology at [facility]. He denies any missed doses of medication nor any significant change in his diet or activity. He is otherwise well and free of complaint MD complaint: rapid heart beat, heart racing and irregular heart beat Onset (ago): hour(s) Duration: constant Severity: moderate Context: occurred during rest Arrhythmia history: atrial fibrillation and on anti-coagulants Related Data Home Medications Medication Instructions Recorded Confirmed atenolol 25 mg PO BID 04/06/18 04/06/18 bupropion HCl 150 mg PO DAILY 04/06/18 04/06/18 escitalopram oxalate 20 mg PO DAILY 04/06/18 04/06/18 omeprazole 40 mg PO DAILY 04/06/18 04/06/18 oxycodone-acetaminophen 1 tab PO TID PRN 04/06/18 04/06/18 prednisone 40 mg PO DAILY 04/06/18 04/06/18 tamsulosin 0.4 mg PO DAILY 04/06/18 04/06/18 Previous Rx's Medication Instructions Recorded apixaban [Eliquis] 5 mg PO BID #60 tab 04/07/18 diltiazem HCl 180 mg PO DAILY #30 cap 04/07/18 Allergies Allergy/AdvReac Type Severity Reaction Status Date / Time erythromycin base Allergy Unknown Verified 09/20/19 09:33 Review of Systems Constitutional Constitutional: Denies chills, Denies fatigue, Denies fever(s), Denies frequent falls, Denies lethargy and Denies weakness Eyes Eyes: Denies change in vision, Denies eye discharge, Denies irritation and Denies loss of vision ENT Ears, Nose, Mouth, and Throat: Denies change in voice, Denies dizziness, Denies neck pain, Denies sore throat and Denies throat swelling Cardiovascular Cardiovascular: Denies chest pain, Reports irregular heart rhythm, Reports lightheadedness, Reports palpitations, Denies dyspnea, Denies dyspnea on exertion and Denies orthopnea Respiratory Respiratory: Denies cough, Denies dyspnea, Denies dyspnea on exertion and Denies wheezing Gastrointestinal Gastrointestinal: Denies abdominal pain, Denies change in bowel habits, Denies diarrhea, Denies nausea and Denies vomiting Genitourinary Genitourinary: Denies hematuria, Denies flank pain, Denies urinary incontinence and Denies urinary urgency Musculoskeletal Musculoskeletal: Denies back pain, Denies muscle weakness, Denies neck pain, Denies numbness and Denies tingling Integumentary/Breasts Skin/Breast: Denies pruritus, Denies erythema, Denies rash and Denies wounds Neurologic Neurologic: Denies behavioral changes, Denies confusion, Denies dizziness, Denies frequent falls, Denies loss of vision, Denies numbness, Denies tingling and Denies weakness Psychiatric Psychiatric: Denies anxiety, Denies behavioral changes, Denies confusion, Denies depression, Denies homicidal ideation and Denies suicidal ideation Endocrine Endocrine: Denies fatigue, Denies flushing and Reports palpitations Hematologic/Lymphatic Hematologic/Lymphatic: Denies easy bruising Allergic/Immunologic Allergic/Immunologic: Denies urticaria, Denies throat swelling and Denies wheezing Patient History Medical History Atrial fibrillation (Acute) Chronic shoulder pain (Acute) Depression (Acute) Gout (Acute) History of cardioversion (Acute) Kidney stone (Acute) Mckeon's neuroma (Acute) CARLTON on CPAP (Acute) PMR (polymyalgia rheumatica) (Acute) Shingles (Acute) Social History household members: spouse Smoking Status: Former smoker Smoking Status: Former smoker alcohol intake frequency: 0-2 drinks per day Substance Use Type: does not use Exam Narrative Exam Narrative: GENERAL: [74] year old patient appears stated age. Well- nourished, well-developed patient, in mild distress. HEAD: Atraumatic. Normocephalic. EYES: Pupils equal round and reactive. Extraocular motions intact. No scleral icterus. No injection or drainage. ENT: Nose without bleeding, purulent drainage. Throat without erythema, tonsillar hypertrophy or exudate. Airway patent. NECK: Trachea midline. Non tender CARDIOVASCULAR: Tachycardic and irregular rhythm without murmurs, gallops, or rubs. RESPIRATORY: Clear to auscultation. Breath sounds equal bilaterally. No wheezes, rales, or rhonchi. GASTROINTESTINAL: Abdomen soft, non-tender, nondistended. EXTREMITIES: No edema or joint tenderness. BACK: Nontender without deformity or crepitance. No flank tenderness. NEURO: AOx3. SKIN: No rash or erythema of visible areas Initial Vital Signs Initial Vital Signs: Vital Signs Temperature 96.9 F L 09/20/19 09:34 Pulse Rate 123 H 09/20/19 09:34 Respiratory Rate 17 09/20/19 09:34 Blood Pressure 141/80 H 09/20/19 09:34 Pulse Oximetry 97 09/20/19 09:34 Course Course Course Narrative: Called to patient's pie icer machine to discuss the case, they are completely on board with my plan to sedate and then cardiovert. By the time I returned to the room the patient's heart rate is down in the upper 90s, though still in AFib but he is completely asymptomatic. We discussed the pros and cons of cardioversion at this point I'm unsure the opinion the risks outweigh the benefits at this point time Orders Ordered: ED Orders 09/20/19 09:33 EKG-12 Lead Stat 09/20/19 09:45 Basic Metabolic Panel Stat Complete Blood Count AUTO DIFF Stat Magnesium Stat Thyroid Stimulating Hormone Stat Troponin & CK Cardiac Panel Stat 09/20/19 10:50 Urine Culture Stat Urine Microscopic Stat Discontinued Medications Sodium Chloride (Normal Saline 0.9%) 1,000 mls @ 150 mls/hr IV CONT SANDRA Last Infusion: 09/20/19 11:23 Dose: 0 mls/hr Documented by: Admin: 09/20/19 10:05 Dose: 150 mls/hr Documented by: SARAH Vital Signs Vital signs: Vital Signs - 8 hr 09/20/19 11:00 09/20/19 11:25 Pulse Rate 94 H 96 H Respiratory Rate 14 16 Blood Pressure [Right Arm] 122/66 Pulse Oximetry 98 96 MDM - Arrhythmia/Palpitations Lab Data Result diagrams: 09/20/19 09:45 09/20/19 09:45 Labs: Lab Results 09/20/19 09/20/19 09/20/19 Range/Units 09:45 09:45 09:45 WBC 5.2 (4.5-11.0) X10^3/uL RBC 4.39 L (4.5-5.9) X10^6/uL Hgb 13.6 (13.5-17.5) g/dL Hct 39.8 L (41-53) % MCV 90.7 (80-100) fL MCH 31.0 (26-34) PG MCHC 34.2 (30-36) % RDW 13.5 (11.6-14.8) % Plt Count 192 (150-400) X10^3/uL Neut % (Auto) 66.4 (50-75) % Lymph % (Auto) 23.7 L (25-40) % [place] % (Auto) 7.1 (3-14) % Eos % (Auto) 2.2 (2-4) % Baso % (Auto) 0.6 (0-2) % Neut # (Auto) 3500 (0736-4551) /uL Lymph # (Auto) 1200 (5739-6825) /uL [place] # (Auto) 400 (0-900) /uL Eos # (Auto) 100 (0-450) /uL Baso # (Auto) 0 (0-100) /uL Sodium 139 (137-145) mmol/L Potassium 4.4 (3.4-5.1) mmol/L Chloride 107 (98-107) mmol/L Carbon Dioxide 22 (22-32) mmol/L BUN 18 (9-20) mg/dL Creatinine 0.80 (0.66-1.25) mg/dL Estimated GFR > 60.0 (>60) mL/min BUN/Creatinine Ratio 22.5 H (6-22) Glucose 151 H (80-110) mg/dL Calcium 9.3 (8.4-10.2) mg/dL Magnesium 1.9 (1.6-2.3) mg/dL Total Creatine Kinase 144 (55-170) U/L CK-MB (CK-2) 1.59 (<2.37) ng/mL CK-MB (CK-2) Rel Index 1.1 L (1.5-5.0) % Troponin I 0.036 H (0.01-0.034) ng/mL TSH 0.71 (0.47-4.68) uIU/mL Urine RBC (0-5/HPF) Urine WBC (0-5/HPF) Urine Bacteria (None) Ur Culture Indicated? 09/20/19 Range/Units 10:50 WBC (4.5-11.0) X10^3/uL RBC (4.5-5.9) X10^6/uL Hgb (13.5-17.5) g/dL Hct (41-53) % MCV (80-100) fL MCH (26-34) PG MCHC (30-36) % RDW (11.6-14.8) % Plt Count (150-400) X10^3/uL Neut % (Auto) (50-75) % Lymph % (Auto) (25-40) % [place] % (Auto) (3-14) % Eos % (Auto) (2-4) % Baso % (Auto) (0-2) % Neut # (Auto) (8532-3520) /uL Lymph # (Auto) (4884-6187) /uL [place] # (Auto) (0-900) /uL Eos # (Auto) (0-450) /uL Baso # (Auto) (0-100) /uL Sodium (137-145) mmol/L Potassium (3.4-5.1) mmol/L Chloride (98-107) mmol/L Carbon Dioxide (22-32) mmol/L BUN (9-20) mg/dL Creatinine (0.66-1.25) mg/dL Estimated GFR (>60) mL/min BUN/Creatinine Ratio (6-22) Glucose (80-110) mg/dL Calcium (8.4-10.2) mg/dL Magnesium (1.6-2.3) mg/dL Total Creatine Kinase (55-170) U/L CK-MB (CK-2) (<2.37) ng/mL CK-MB (CK-2) Rel Index (1.5-5.0) % Troponin I (0.01-0.034) ng/mL TSH (0.47-4.68) uIU/mL Urine RBC 1-5/hpf (0-5/HPF) Urine WBC 5-10/hpf H (0-5/HPF) Urine Bacteria None seen (None) Ur Culture Indicated? Specimen cultured Urine Dip Bedside Urine Glucose Negative Bedside Urine Bilirubin - Negative Bedside Urine Ketone - Negative Urine Specific [place] 1.010 Bedside Urine Occult Blood - Negative Bedside Urine pH 6.0 Bedside Urine Protein - Negative Bedside Urine Urobilinogen - Negative Bedside Urine Nitrite - Negative Bedside Urine Leukocytes + 70 Esterase Discharge Plan Departure Patient Disposition: Home Clinical Impression: Atrial flutter, Atrial fibrillation Discharge Date/Time: 09/20/19 11:36 Instructions: DI for Atrial Fibrillation Activity Restrictions/Additional Instructions: *You have been diagnosed with [acute rapid AFib/a flutter, resolved] *What to do: *Take medications as directed *Follow up with your primary care provider in 2-3 days, call for an appointment. Let them know you were seen in the Emergency Department and that we ask that you be seen in follow up *Return to ER if you should have any new, worsening or concerning symptoms Prescriptions: No Action prednisone 20 mg tablet 40 mg PO DAILY RF: 0 atenolol 25 mg tablet 25 mg PO BID RF: 0 omeprazole 40 mg capsule,delayed release(DR/EC) 40 mg PO DAILY RF: 0 oxycodone-acetaminophen 5-325 mg tablet 1 tab PO TID PRN (Reason: Pain, Moderate) RF: 0 tamsulosin 0.4 mg capsule,extended release 24hr 0.4 mg PO DAILY RF: 0 bupropion HCl 150 mg tablet extended release 24 hr 150 mg PO DAILY RF: 0 escitalopram oxalate 20 mg tablet 20 mg PO DAILY RF: 0 diltiazem HCl 180 mg Capsule,Extended Release 24hr 180 mg PO DAILY Qty: 30 RF: 0 apixaban [Eliquis] 5 mg Tablet 5 mg PO BID Qty: 60 RF: 0
[2019-09-20 10:03] LABS: Add Manual Diff / Slide Review NO; Basophils Absolute Auto 0 /uL (0-100); Basophils Percent Auto 0.6 % (0-2); Eosinophils Absolute Auto 100 /uL (0-450); Eosinophils Percent Auto 2.2 % (2-4); Hematocrit 39.8 % (41-53); Hemoglobin 13.6 g/dL (13.5-17.5); Lymphocytes Absolute Auto 1200 /uL (1100-4500); Lymphocytes Percent Auto 23.7 % (25-40); Mean Corpuscular HGB Conc 34.2 % (30-36); Mean Corpuscular Volume 90.7 fL (80-100); Monocytes Absolute Auto 400 /uL (0-900); Monocytes Percent Auto 7.1 % (3-14); Neutrophils Absolute Auto 3500 /uL (1500-7000); Neutrophils Percent Auto 66.4 % (50-75); Platelet Count 192 X10^3/uL (150-400); Red Blood Cell Count 4.39 X10^6/uL (4.5-5.9); Red Cell Distribution Width 13.5 % (11.6-14.8); White Blood Cell Count 5.2 X10^3/uL (4.5-11.0)
[2019-09-20] MEDS: SODIUM CHLORIDE 0.9% 1,000 ML 150 ML IV (10:05)
[2019-09-20 10:11] VITALS: BP 129/69; PULSE 100; RESP 16; O2SAT 96
[2019-09-20 10:30] LABS: BUN Creatinine Ratio 22.5 (6-22); Blood Urea Nitrogen 18 mg/dL (9-20); Calcium 9.3 mg/dL (8.4-10.2); Carbon Dioxide 22 mmol/L (22-32); Chloride 107 mmol/L (98-107); Creatine Kinase 144 U/L (55-170); Estimated Glomerular Filt Rate > 60.0 mL/min (>60); Glucose 151 mg/dL (80-110); Magnesium 1.9 mg/dL (1.6-2.3); Potassium 4.4 mmol/L (3.4-5.1); Sodium 139 mmol/L (137-145)
[2019-09-20 10:41] LABS: Troponin I 0.036 ng/mL (0.01-0.034)
[2019-09-20 10:57] LABS: CKMB % Relative Index 1.1 % (1.5-5.0); Creatine Kinase MB 1.59 ng/mL (<2.37); HEMOLYSIS 26 (0-50)
[2019-09-20 11:00] VITALS: BP 122/66; PULSE 94; RESP 14; O2SAT 98
[2019-09-20 11:01] LABS: Thyroid Stimulating Hormone 0.71 uIU/mL (0.47-4.68)
[2019-09-20 11:04] LABS: Bacteria Urine None Seen
[2019-09-20 11:19] LABS: Culture Indicated Urine Specimen Cultured; RBC Urine 1-5/HPF (0-5/HPF); WBC Urine 5-10/HPF (0-5/HPF)
--- NOTE | 2019-09-20 11:23 | PC.NURSE ---
Pt ambulated around ER, said he felt great. Denied SOB, chest pain or dizziness. Heart rate upon return to room is 95.
[2019-09-20 11:25] VITALS: PULSE 96; RESP 16; O2SAT 96
== END 2019-09-20 11:36 | disposition home or self-care (01) ==
PROVIDERS: Emergency Provider Emergency Medicine
DX: I48.92 Unspecified atrial flutter (principal); I48.91 Unspecified atrial fibrillation; Z79.01 Long term (current) use of anticoagulants
CPT/HCPCS: 36415; 80048; 81003; 81015; 82550; 82553; 83735; 84443; 84484; 85025; 87077; 87086; 87186; 93005; 96360; 99284

== ENCOUNTER 2019-09-21 22:48 | Emergency (ER) | payer MEDICARE, OTHER, SELFPAY ==
[2018-04-06 17:55] VITALS: BMI 28.5
[2019-09-21 22:56] VITALS: BP 150/101; PULSE 143; RESP 15; O2SAT 95
--- NOTE | 2019-09-21 22:59 | ED_ITS ---
HPI - Chest Pain General Chief Complaint: Chest Pain Stated Complaint: chest pain Time Seen by Provider: 09/21/19 22:57 Source: patient Mode of arrival: Ambulatory Limitations: no limitations History of Present Illness HPI narrative: 74-year-old male with a known history of paroxysmal atrial fibrillation. On Eliquis and atenolol. Also takes diltiazem. Has had 2 prior ablations. Sees cardiology Catrachita montoya. Here in the emergency department in a couple days ago with AFib with RVR however prior to cardioversion patient became rate controlled on his own. Arrives this evening with similar symptoms. Describes some chest discomfort with heart beating fast and lightheadedness. Started earlier this evening. States that he took his atenolol on Eliquis today. Has not missed any doses of his Eliquis. Related Data Home Medications Medication Instructions Recorded Confirmed atenolol 25 mg PO BID 04/06/18 04/06/18 bupropion HCl 150 mg PO DAILY 04/06/18 04/06/18 escitalopram oxalate 20 mg PO DAILY 04/06/18 04/06/18 omeprazole 40 mg PO DAILY 04/06/18 04/06/18 oxycodone-acetaminophen 1 tab PO TID PRN 04/06/18 04/06/18 prednisone 40 mg PO DAILY 04/06/18 04/06/18 tamsulosin 0.4 mg PO DAILY 04/06/18 04/06/18 Previous Rx's Medication Instructions Recorded apixaban [Eliquis] 5 mg PO BID #60 tab 04/07/18 diltiazem HCl 180 mg PO DAILY #30 cap 04/07/18 Allergies Allergy/AdvReac Type Severity Reaction Status Date / Time erythromycin base Allergy Unknown Verified 09/20/19 09:33 Review of Systems Constitutional Constitutional: Denies fever(s) and Denies headache(s) ENT Ears, Nose, Mouth, and Throat: Denies headache(s) Cardiovascular Cardiovascular: Reports chest pain, Reports palpitations and Denies dyspnea Respiratory Respiratory: Denies dyspnea Gastrointestinal Gastrointestinal: Denies abdominal pain, Denies nausea and Denies vomiting Integumentary/Breasts Skin/Breast: Denies lesions and Denies rash Neurologic Neurologic: Denies behavioral changes and Denies headache(s) Comments: Lightheadedness Psychiatric Psychiatric: Denies behavioral changes Endocrine Endocrine: Reports palpitations Hematologic/Lymphatic Comments: On Eliquis Patient History Medical History Atrial fibrillation (Acute) Chronic shoulder pain (Acute) Depression (Acute) Gout (Acute) History of cardioversion (Acute) Kidney stone (Acute) Mckeon's neuroma (Acute) CARLTON on CPAP (Acute) PMR (polymyalgia rheumatica) (Acute) Shingles (Acute) Social History household members: spouse Smoking Status: Former smoker Smoking Status: Former smoker alcohol intake frequency: 0-2 drinks per day Substance Use Type: does not use Exam Initial Vital Signs Initial Vital Signs: Vital Signs Pulse Rate 143 H 09/21/19 22:56 Respiratory Rate 15 09/21/19 22:56 Blood Pressure 150/101 H 09/21/19 22:56 Pulse Oximetry 95 09/21/19 22:56 Const General: cooperative and healthy appearing Limitations: mental status not altered Resp Effort & Inspection: normal respiratory effort Cardio Rate: tachycardic Rhythm: abnormal rhythm irregularly irregular Skin Lesions: no lesions Rashes: no rashes Neuro General: alert, awake and oriented x3 Cognition: normal cognition Speech: speech normal Gait: normal gait Extrem General: normal to inspection, capillary refill normal and No edema Psych Appearance: grossly normal and well kempt Procedures Cardioversion Consent Signed: Yes Indication: Atrial fibrillation Cardiac rhythm prior to cardioversion: AFib with RVR Stability: Stable Number of attempts (shocks): 1 Joules used: 150 Cardiac rhythm post-cardioversion: Sinus rhythm Procedural Sedation Patient Age: Patient is 5yrs or older Consent signed: Yes Time out performed: Yes Indication: cardioversion Presedation Evaluation: See HPI ASA Class: II Mallampati Airway Classification: Class I Preparation: monitoring and evaluation advisor applied, pulse oximeter, capnometry used, supplemental O2 applied and suction/airway equipment at bedside IV Propofol dose (mg): 100 ED Sedation Level: Moderate (Concious) Patient Tolerated Procedure: Well and No complications Complications: none Scores GCS Raul coma scale eye opening: Spontaneous Shaw coma scale verbal response: Orientated Raul coma scale motor response: Obey commands Shaw coma scale total score: 15 Course Orders Ordered: ED Orders 09/21/19 22:56 EKG-12 Lead Stat 09/21/19 23:00 Complete Blood Count AUTO DIFF Stat Comprehensive Metabolic Panel Stat Lipase Stat Partial Thromboplastin Time Stat Prothrombin Time INR Stat Troponin I Stat 09/21/19 23:10 RT Consult Eval and Treat Now 09/21/19 23:41 EKG-12 Lead Stat Sodium Chloride (Normal Saline 0.9%) 1,000 mls @ 125 mls/hr IV CONT SANDRA Discontinued Medications Propofol (Diprivan) 100 mg IV NOW ONE Stop: 09/21/19 23:11 Vital Signs Vital signs: Vital Signs - 8 hr 09/21/19 22:56 09/21/19 23:35 09/21/19 23:40 Pulse Rate 143 H 141 H 56 L Respiratory Rate 15 19 14 Blood Pressure 150/101 H Blood Pressure [Left Arm] 142/71 H 135/69 Pulse Oximetry 95 99 96 09/21/19 23:45 09/21/19 23:50 09/21/19 23:55 Pulse Rate 56 L 56 L 56 L Respiratory Rate 18 21 18 Blood Pressure Blood Pressure [Left Arm] 125/67 121/66 127/73 Pulse Oximetry 95 96 95 09/22/19 00:00 09/22/19 00:05 Pulse Rate 57 L 57 L Respiratory Rate 18 16 Blood Pressure Blood Pressure [Left Arm] 134/90 130/82 Pulse Oximetry 97 97 MDM - Chest Pain Medical Records Data Attestation: I reviewed the patient's medical records. Lab Data Attestation: I reviewed the patient's lab results. Result diagrams: 09/21/19 23:00 09/21/19 23:00 Labs: Lab Results 09/21/19 09/21/19 09/21/19 Range/Units 23:00 23:00 23:00 WBC 7.5 (4.5-11.0) X10^3/uL RBC 4.32 L (4.5-5.9) X10^6/uL Hgb 13.3 L (13.5-17.5) g/dL Hct 39.3 L (41-53) % MCV 91.0 (80-100) fL MCH 30.9 (26-34) PG MCHC 33.9 (30-36) % RDW 13.7 (11.6-14.8) % Plt Count 191 (150-400) X10^3/uL Neut % (Auto) 59.6 (50-75) % Lymph % (Auto) 30.0 (25-40) % [place] % (Auto) 7.0 (3-14) % Eos % (Auto) 2.3 (2-4) % Baso % (Auto) 1.1 (0-2) % Neut # (Auto) 4500 (8913-9188) /uL Lymph # (Auto) 2300 (7110-9786) /uL [place] # (Auto) 500 (0-900) /uL Eos # (Auto) 200 (0-450) /uL Baso # (Auto) 100 (0-100) /uL PT 11.4 (10.1-12.7) SECONDS INR 1.0 (0.9-1.3) APTT 35 D (26.4-36.2) SECONDS Sodium 137 (137-145) mmol/L Potassium 4.3 (3.4-5.1) mmol/L Chloride 105 (98-107) mmol/L Carbon Dioxide 23 (22-32) mmol/L BUN 23 H (9-20) mg/dL Creatinine 0.90 (0.66-1.25) mg/dL Estimated GFR > 60.0 (>60) mL/min BUN/Creatinine Ratio 25.6 H (6-22) Glucose 111 H (80-110) mg/dL Calcium 9.7 (8.4-10.2) mg/dL Total Bilirubin 0.3 (0.2-1.3) mg/dL AST 43 (17-59) IU/L ALT 40 (<50) IU/L Alkaline Phosphatase 63 (38-126) U/L Troponin I (0.01-0.034) ng/mL Total Protein 7.7 (6.3-8.2) g/dL Albumin 4.5 (3.5-5.0) g/dL Globulin 3.2 (1.7-4.1) g/dL Albumin/Globulin Ratio 1.4 (1.0-2.8) Lipase (23-300) U/L 09/21/19 Range/Units 23:00 WBC (4.5-11.0) X10^3/uL RBC (4.5-5.9) X10^6/uL Hgb (13.5-17.5) g/dL Hct (41-53) % MCV (80-100) fL MCH (26-34) PG MCHC (30-36) % RDW (11.6-14.8) % Plt Count (150-400) X10^3/uL Neut % (Auto) (50-75) % Lymph % (Auto) (25-40) % [place] % (Auto) (3-14) % Eos % (Auto) (2-4) % Baso % (Auto) (0-2) % Neut # (Auto) (2938-8036) /uL Lymph # (Auto) (2454-1948) /uL [place] # (Auto) (0-900) /uL Eos # (Auto) (0-450) /uL Baso # (Auto) (0-100) /uL PT (10.1-12.7) SECONDS INR (0.9-1.3) APTT (26.4-36.2) SECONDS Sodium (137-145) mmol/L Potassium (3.4-5.1) mmol/L Chloride (98-107) mmol/L Carbon Dioxide (22-32) mmol/L BUN (9-20) mg/dL Creatinine (0.66-1.25) mg/dL Estimated GFR (>60) mL/min BUN/Creatinine Ratio (6-22) Glucose (80-110) mg/dL Calcium (8.4-10.2) mg/dL Total Bilirubin (0.2-1.3) mg/dL AST (17-59) IU/L ALT (<50) IU/L Alkaline Phosphatase (38-126) U/L Troponin I 0.031 (0.01-0.034) ng/mL Total Protein (6.3-8.2) g/dL Albumin (3.5-5.0) g/dL Globulin (1.7-4.1) g/dL Albumin/Globulin Ratio (1.0-2.8) Lipase 102 (23-300) U/L ECG Data Attestation: I personally reviewed and interpreted this ECG as follows: Prior ECG tracings: not available for review Interpretation: EKG upon arrival Atrial fibrillation Ventricular rate [address] depression V3 V4 V[address] elevation Post cardioversion EKG Sinus bradycardia Ventricular rate of 57 Left axis deviation Nonspecific ST T wave changes MDM Narrative Medical decision making narrative: Patient with a history of paroxysmal atrial fibrillation. Is on Eliquis. Has not missed any dose of the Eliquis. Arrived today with symptoms consistent with atrial fibrillation RVR. After consent was signed patient was sedated and cardioverted as described above with successful cardioversion. We discussed risks and benefits of this. We did discuss the should continue his Eliquis. Discussed he should continue the rest of his medications as directed. Informed him that he should contact his primary doctor tomorrow for follow-up. Patient expressed understanding and agreement plan. Discharge Plan Departure Patient Disposition: Home Clinical Impression: Atrial fibrillation Qualifiers: Atrial fibrillation type: paroxysmal Qualified Code(s): I48.0 - Paroxysmal atrial fibrillation Instructions: DI for Cardioversion Activity Restrictions/Additional Instructions: Continue all of your medications as directed. Tomorrow contact your cardiologi st for follow-up. Return to the emergency department for any new or worsening symptoms Prescriptions: No Action prednisone 20 mg tablet 40 mg PO DAILY RF: 0 atenolol 25 mg tablet 25 mg PO BID RF: 0 omeprazole 40 mg capsule,delayed release(DR/EC) 40 mg PO DAILY RF: 0 oxycodone-acetaminophen 5-325 mg tablet 1 tab PO TID PRN (Reason: Pain, Moderate) RF: 0 tamsulosin 0.4 mg capsule,extended release 24hr 0.4 mg PO DAILY RF: 0 bupropion HCl 150 mg tablet extended release 24 hr 150 mg PO DAILY RF: 0 escitalopram oxalate 20 mg tablet 20 mg PO DAILY RF: 0 diltiazem HCl 180 mg Capsule,Extended Release 24hr 180 mg PO DAILY Qty: 30 RF: 0 apixaban [Eliquis] 5 mg Tablet 5 mg PO BID Qty: 60 RF: 0
[2019-09-21 23:05] LABS: Add Manual Diff / Slide Review NO; Basophils Absolute Auto 100 /uL (0-100); Basophils Percent Auto 1.1 % (0-2); Eosinophils Absolute Auto 200 /uL (0-450); Eosinophils Percent Auto 2.3 % (2-4); Hematocrit 39.3 % (41-53); Hemoglobin 13.3 g/dL (13.5-17.5); Lymphocytes Absolute Auto 2300 /uL (1100-4500); Mean Corpuscular HGB Conc 33.9 % (30-36); Mean Corpuscular Hemoglobin 30.9 PG (26-34); Monocytes Absolute Auto 500 /uL (0-900); Neutrophils Absolute Auto 4500 /uL (1500-7000); Neutrophils Percent Auto 59.6 % (50-75); Platelet Count 191 X10^3/uL (150-400); Red Blood Cell Count 4.32 X10^6/uL (4.5-5.9); Red Cell Distribution Width 13.7 % (11.6-14.8); White Blood Cell Count 7.5 X10^3/uL (4.5-11.0)
[2019-09-21 23:12] LABS: Prothrombin Time 11.4 SECONDS (10.1-12.7)
[2019-09-21 23:14] LABS: PTT Partial Thromboplastin Tim 35 SECONDS (26.4-36.2)
[2019-09-21 23:17] LABS: Alanine Aminotransferase 40 IU/L (<50); Albumin 4.5 g/dL (3.5-5.0); Albumin Globulin Ratio 1.4 (1.0-2.8); Alkaline Phosphatase 63 U/L (38-126); Aspartate Aminotransferase 43 IU/L (17-59); BUN Creatinine Ratio 25.6 (6-22); Bilirubin Total 0.3 mg/dL (0.2-1.3); Blood Urea Nitrogen 23 mg/dL (9-20); Calcium 9.7 mg/dL (8.4-10.2); Carbon Dioxide 23 mmol/L (22-32); Chloride 105 mmol/L (98-107); Estimated Glomerular Filt Rate > 60.0 mL/min (>60); Globulin 3.2 g/dL (1.7-4.1); Glucose 111 mg/dL (80-110); HEMOLYSIS < 15 (0-50); Lipase 102 U/L (23-300); Potassium 4.3 mmol/L (3.4-5.1); Sodium 137 mmol/L (137-145); Total Protein 7.7 g/dL (6.3-8.2)
[2019-09-21 23:28] LABS: Troponin I 0.031 ng/mL (0.01-0.034)
[2019-09-21 23:35] VITALS: BP 142/71; PULSE 141; RESP 19; O2SAT 99
[2019-09-21 23:40] VITALS: BP 135/69; PULSE 56; RESP 14; O2SAT 96
[2019-09-21 23:45] VITALS: BP 125/67; PULSE 56; RESP 18; O2SAT 95
[2019-09-21 23:50] VITALS: BP 121/66; PULSE 56; RESP 21; O2SAT 96
[2019-09-21 23:55] VITALS: BP 127/73; PULSE 56; RESP 18; O2SAT 95
[2019-09-22] VITALS: BP 134/90; PULSE 57; RESP 18; O2SAT 97
[2019-09-22 00:05] VITALS: BP 130/82; PULSE 57; RESP 16; O2SAT 97
[2019-09-22 00:10] VITALS: BP 127/67; PULSE 57; RESP 17; O2SAT 96
== END 2019-09-22 00:34 | disposition home or self-care (01) ==
PROVIDERS: Emergency Provider Emergency Medicine
DX: I48.0 Paroxysmal atrial fibrillation (principal); Z79.01 Long term (current) use of anticoagulants
CPT/HCPCS: 36415; 80053; 83690; 84484; 85025; 85610; 85730; 92960; 93005; 99285

== ENCOUNTER 2024-05-12 09:26 | Emergency (ER) | payer MEDICARE, OTHER, SELFPAY ==
[2024-05-12 09:26] VITALS: BMI 28.5
[2024-05-12 09:49] VITALS: BP 152/72; PULSE 50; RESP 14; TEMP 36.6; O2SAT 99; BMI 28.3
[2024-05-12] MEDS: diazePAM 5 MG TABLET PO (10:00)
[2024-05-12] MEDS: ACETAMINOPHEN 325 MG TABLET 650 MG PO (10:00)
--- NOTE | 2024-05-12 11:03 | ED_ITS ---
HPI - Back Pain/Injury <David Pena PA-C - Last Filed: 05/12/24 11:22> General Chief Complaint: Back Pain/Injury Stated Complaint: Recurring Back Spasms Time Seen by Provider: 05/12/24 11:03 Source: patient History of Present Illness HPI Narrative: This is a 79-year-old male presents emergency department due to right side of lower back pain as well as right hip pain. States this is chronic in nature but it is flared up over the last week. He states that he was a dull aching pain in his right side with some lower back spasming. Denies any blood in his urine, dysuria, urinary frequency, fevers, nausea, vomiting, urinary or bowel in continence, saddle paresthesias, or any other concerning signs or symptoms. No trauma to the area. Patient sees physical therapy for this usually. Patient has not taken any medications for this. Related Data Home Medications Medication Instructions Recorded Confirmed atenolol 25 mg tablet 25 mg PO BID 04/06/18 04/06/18 bupropion HCl 150 mg 24 hr tablet, 150 mg PO DAILY 04/06/18 04/06/18 extended release escitalopram oxalate 20 mg tablet 20 mg PO DAILY 04/06/18 04/06/18 omeprazole 40 mg capsule,delayed 40 mg PO DAILY 04/06/18 04/06/18 release oxycodone-acetaminophen 5 mg-325 1 tab PO TID PRN Pain, Moderate 04/06/18 04/06/18 mg tablet tamsulosin 0.4 mg capsule 0.4 mg PO DAILY 04/06/18 04/06/18 Previous Rx's Medication Instructions Recorded apixaban 5 mg tablet (Eliquis) 5 mg PO BID #60 tabs 04/07/18 diltiazem HCl 180 mg 180 mg PO DAILY #30 caps 04/07/18 capsule,extended release 24 hr cyclobenzaprine 10 mg tablet 10 mg PO BEDTIME PRN muscle spasm 05/12/24 #14 tabs lidocaine 5 % topical patch 1 patch topical DAILY #15 ea 05/12/24 Allergies Allergy/AdvReac Type Severity Reaction Status Date / Time latex Allergy Intermediate Rash Verified 05/12/24 09:53 erythromycin base Allergy Unknown Verified 05/12/24 09:53 Review of Systems <David Pena PA-C - Last Filed: 05/12/24 11:22> Review of Systems Narrative: GENERAL: Denies chills, fatigue, malaise, fever, sweats. HEENT: Denies sinus pain, ear pain, sore throat, difficulty swallowing, dizziness. RESPIRATORY: Denies dyspnea, cough, wheezing, hemoptysis, sputum. CARDIOVASCULAR: Denies chest pain, palpitations, orthopnea, edema, GASTROINTESTINAL: Denies nausea, vomiting, abdominal pain, diarrhea, constipation, melena. : Denies dysuria, frequency, incontinence, hematuria, urinary retention. MUSCULOSKELETAL: Reports right-sided lower back pain as well as right hip pain SKIN: Denies rash, skin lesions, or other NEUROLOGIC: Denies weakness, headache, numbness, change in speech, confusion, seizures, incoordination. PSYCHIATRIC: No concerning psychosocial issues. 12 point review of systems is negative except for those stated above Patient History <David Pena PA-C - Last Filed: 05/12/24 11:22> Medical History (Updated 05/12/24 @ 11:19 by David Pena PA-C) Shingles Chronic shoulder pain Depression PMR (polymyalgia rheumatica) CARLTON on CPAP Mckeon's neuroma Kidney stone Gout History of cardioversion Atrial fibrillation Social History household members: spouse Smoking Status: Former smoker Smoking Status: Former smoker alcohol intake frequency: 0-2 drinks per day Substance Use Type: does not use Exam <David Pena PA-C - Last Filed: 05/12/24 11:22> Narrative Exam Narrative: GENERAL: Well-developed patient, in mild distress. HEAD: Atraumatic. Normocephalic. EYES: Pupils equal round and reactive. Extraocular motions intact. No scleral icterus. No injection or drainage. ENT: Nose without bleeding, purulent drainage. Throat without erythema, tonsillar hypertrophy or exudate. Airway patent. NECK: Trachea midline. Non tender EXTREMITIES: No edema or joint tenderness. Pain with some movement of the lower back. No midline tenderness to palpation. Minimal right-sided lumbar paraspinal tenderness to palpation. NEURO: AOx3. SKIN: No rash or erythema of visible areas Initial Vital Signs Initial Vital Signs: Vital Signs Temperature 97.8 F 05/12/24 09:49 Pulse Rate 50 L 05/12/24 09:49 Respiratory Rate 14 05/12/24 09:49 Blood Pressure 152/72 H 05/12/24 09:49 Pulse Oximetry 99 05/12/24 09:49 Oxygen Delivery Method Room Air 05/12/24 09:49 <Keyonna Morales DO - Last Filed: 05/12/24 17:33> Initial Vital Signs Initial Vital Signs: Vital Signs Temperature 97.8 F 05/12/24 09:49 Pulse Rate 50 L 05/12/24 09:49 Respiratory Rate 14 05/12/24 09:49 Blood Pressure 152/72 H 05/12/24 09:49 Pulse Oximetry 99 05/12/24 09:49 Oxygen Delivery Method Room Air 05/12/24 09:49 Course <David Pena PA-C - Last Filed: 05/12/24 11:22> Orders Ordered: Discontinued Medications Acetaminophen (Acetaminophen 325 Mg Tablet) 650 mg PO NOW ONE Stop: 05/12/24 09:57 Last Admin: 05/12/24 10:00 Dose: 650 mg Documented By: KATIE Diazepam (Diazepam 5 Mg Tablet) 5 mg PO NOW ONE Stop: 05/12/24 09:57 Last Admin: 05/12/24 10:00 Dose: 5 mg Documented By: KATIE Vital Signs Vital signs: Vital Signs - 8 hr 05/12/24 09:49 05/12/24 11:29 Temperature 97.8 F Pulse Rate 50 L 60 Respiratory Rate 14 17 Blood Pressure 152/72 H 136/67 Pulse Oximetry 99 97 Oxygen Delivery Method Room Air Room Air <Keyonna Morales DO - Last Filed: 05/12/24 17:33> Orders Ordered: Discontinued Medications Acetaminophen (Acetaminophen 325 Mg Tablet) 650 mg PO NOW ONE Stop: 05/12/24 09:57 Last Admin: 05/12/24 10:00 Dose: 650 mg Documented By: KATIE Diazepam (Diazepam 5 Mg Tablet) 5 mg PO NOW ONE Stop: 05/12/24 09:57 Last Admin: 05/12/24 10:00 Dose: 5 mg Documented By: KATIE Vital Signs Vital signs: Vital Signs - 8 hr 05/12/24 09:49 05/12/24 11:29 Temperature 97.8 F Pulse Rate 50 L 60 Respiratory Rate 14 17 Blood Pressure 152/72 H 136/67 Pulse Oximetry 99 97 Oxygen Delivery Method Room Air Room Air MDM - Back Pain/Injury <David Pena PA-C - Last Filed: 05/12/24 11:22> [facility] Narrative Medical decision making narrative: ED course: This is a 79-year-old male presents to the emergency department due to suspected lumbosacral strain on the right side. Patient was given Valium and Tylenol prior to my arrival to see the patient. Suspect muscular in nature. No red flag symptoms. Patient was prescribed muscle relaxers, lidocaine patches, and will use his his at-home Voltaren gel. No trauma to the area no need for any kind of imaging. CC: Right-sided lower back pain Complicating co-morbidities: As below Data collected from: Previous notes Medical records reviewed: Patient was last seen 4 years ago due to atrial fibrillation. On Eliquis and atenolol. Also takes diltiazem. History of 2 prior ablations in his seen at cardiology at [facility]. Also has a history history of chronic shoulder pain, depression, kidney stones, polymyalgia rheumatica, shingles. Patient was successfully cardioverted in the emergency department discharge. Differential considered, but not limited to: Lumbar strain, fracture, kidney stone, UTI Exam documented above, pertinent findings include: Worsening pain with movement, some tenderness to palpation Lab Test results independently reviewed as above. Pertinent findings: None obtained Imaging studies independently reviewed: None obtained Scores Used: None MIPS Elements: None Consultations: None Treatments: Valium and Tylenol Re-evaluations: None Discussion: Discussed plan with the patient was comfortable with the plan Diagnosis: Lumbosacral strain Disposition: see below, along with detailed discharge instructions that have been reviewed with patient as well as indications for ED re-evaluation and additional outpatient follow up Discharge Plan Departure Patient Disposition: Home Clinical Impression: Strain of lumbar region Instructions: DI for Low Back Pain Activity Restrictions/Additional Instructions: Thank you for coming to the [facility] Emergency Department today. As we discussed suspect this is muscular in nature. Please take the muscle relaxants as prescribed. Please do not take before driving or operating heavy machinery as it may make you feel a bit ?woozy?. Please follow up with the primary care provider and physical therapist for further management. Please return to the emergency department if you develop any fevers, numbness or tingling between your legs, urinary or bowel incontinence, or any other concerning signs or symptoms. I hope you feel better soon. Please follow up with your primary care provider within a week if your symptoms continue. If you do not have a primary care provider please contact the [facility] ource line at [phone]. They will ask some questions about your medical history and help you get set up with a provider in the community. Prescriptions: New cyclobenzaprine 10 mg tablet 10 mg PO BEDTIME PRN (Reason: muscle spasm) Qty: 14 0RF lidocaine 5 % adhesive patch,medicated 1 patch topical DAILY Qty: 15 0RF Rx Instructions: leave on most painful area for up to 12 hrs No Action atenolol 25 mg tablet 25 mg PO BID omeprazole 40 mg capsule,delayed release(DR/EC) 40 mg PO DAILY oxycodone-acetaminophen 5-325 mg tablet 1 tab PO TID PRN (Reason: Pain, Moderate) Patient Comments: TK 1 T PO TID FOR 30 DAYS PRN P tamsulosin 0.4 mg capsule,extended release 24hr 0.4 mg PO DAILY bupropion HCl 150 mg tablet extended release 24 hr 150 mg PO DAILY escitalopram oxalate 20 mg tablet 20 mg PO DAILY diltiazem HCl 180 mg Capsule,Extended Release 24hr 180 mg PO DAILY Qty: 30 0RF apixaban [Eliquis] 5 mg Tablet 5 mg PO BID Qty: 60 0RF Stand Alone Forms: Patient Portal/API ED Sign-out <Keyonna Morales DO - Last Filed: 05/12/24 17:33> Cosign ED Attending Cecy Attestation: I was immediately available in the department for consultation.
[2024-05-12 11:29] VITALS: BP 136/67; PULSE 60; RESP 17; O2SAT 97
== END 2024-05-12 11:31 | disposition home or self-care (01) ==
PROVIDERS: Emergency Provider Physician Assistant Medical
DX: S39.012A Strain of muscle, fascia and tendon of lower back, initial encounter (principal); X58.XXXA Exposure to other specified factors, initial encounter
CPT/HCPCS: 99283

== ENCOUNTER 2025-02-16 18:32 | Emergency (ER) | payer MEDICARE, OTHER, SELFPAY ==
--- NOTE | 2025-02-16 19:00 | DI.RAD.S_ITS ---
PROCEDURE: XR TIBIA FUBULA RT 2V INDICATIONS: injury, blunt TECHNIQUE: 2 views of the tibia and fibula were acquired. COMPARISON: None. FINDINGS: Bones: No fractures or dislocations. No suspicious bony lesions. Soft tissues: No suspicious soft tissue calcifications or masses. IMPRESSION: No gross acute right lower leg fracture or dislocation. No soft tissue abnormalities. Dictated by: Wiley Lo M.D. on 02/16/2025 at 19:28 Approved by: Wiley Lo M.D. on 02/16/2025 at 19:28
[2025-02-16 19:45] VITALS: BP 125/73; PULSE 86; RESP 17; TEMP 36.6; O2SAT 97; BMI 28.8
== END 2025-02-16 22:31 | disposition left against medical advice (07) ==
PROVIDERS: Emergency Provider Emergency Medicine
DX: M79.89 Other specified soft tissue disorders (principal); Z53.21 Procedure and treatment not carried out due to patient leaving prior to being seen by health care provider
CPT/HCPCS: 73590; 99281

== ENCOUNTER 2025-02-17 08:47 | Emergency (ER) | payer MEDICARE, OTHER, SELFPAY ==
[2025-02-17 08:53] VITALS: BP 138/84; PULSE 90; RESP 16; TEMP 36.6; O2SAT 97; BMI 28.8
--- NOTE | 2025-02-17 08:59 | ED.LOWEXIN ---
HPI - Extremity Injury (Lower) General Chief Complaint: Extremity Injury, Lower Stated Complaint: Lump on Right side lower chapa Time Seen by Provider: 02/17/25 08:53 History of Present Illness HPI Narrative: Patient was here yesterday for injury to the right lateral leg. X-ray was done but patient left without being seen. Patient states he bumped his leg against the knob of a drawer/bed furniture yesterday. He is on Eliquis for atrial fibrillation. Swelling has been there. He has been icing elevating it. He returns here for re-evaluation. Patient wearing shorts. Patient wearing sandals. Related Data Home Medications ?Medication ?Instructions ?Recorded ?Confirmed atenolol 25 mg tablet 25 mg PO BID 04/06/18 04/06/18 bupropion HCl 150 mg 24 hr tablet, 150 mg PO DAILY 04/06/18 04/06/18 extended release escitalopram oxalate 20 mg tablet 20 mg PO DAILY 04/06/18 04/06/18 omeprazole 40 mg capsule,delayed 40 mg PO DAILY 04/06/18 04/06/18 release oxycodone-acetaminophen 5 mg-325 1 tab PO TID PRN Pain, Moderate 04/06/18 04/06/18 mg tablet tamsulosin 0.4 mg capsule 0.4 mg PO DAILY 04/06/18 04/06/18 Previous Rx's ?Medication ?Instructions ?Recorded apixaban 5 mg tablet (Eliquis) 5 mg PO BID #60 tabs 04/07/18 diltiazem HCl 180 mg 180 mg PO DAILY #30 caps 04/07/18 capsule,extended release 24 hr cyclobenzaprine 10 mg tablet 10 mg PO BEDTIME PRN muscle spasm 05/12/24 #14 tabs lidocaine 5 % topical patch 1 patch topical DAILY #15 ea 05/12/24 Allergies Allergy/AdvReac Type Severity Reaction Status Date / Time latex Allergy Intermediate Rash Verified 02/17/25 08:54 erythromycin base Allergy Unknown Verified 02/17/25 08:54 Review of Systems Review of Systems Narrative: GENERAL: Negative chills, fatigue, malaise, fever, sweats. HEENT: Negative sinus pain, ear pain, sore throat RESPIRATORY: Negative dyspnea, cough CARDIOVASCULAR: Negative chest pain, palpitations GASTROINTESTINAL: Negative vomiting, nausea, abdominal pain : Negative dysuria, frequency, hematuria MUSCULOSKELETAL: Positive muscle or bony pain SKIN: Negative rash, skin lesions NEUROLOGIC: Negative weakness, numbness ROS Unobtainable: All systems reviewed & are unremarkable except as noted in HPI and below Patient History Medical History (Updated 02/17/25 @ 09:32 by Rajesh Valle MD) Shingles Chronic shoulder pain Depression PMR (polymyalgia rheumatica) [place]LTON on CPAP Mckeon's neuroma Kidney stone Gout History of cardioversion Atrial fibrillation Social History household members: spouse alcohol intake frequency: 0-2 drinks per day Exam Narrative Exam Narrative: GENERAL: in no distress, not toxic not dyspneic HEAD: Normocephalic. EYES: Pupils equal round EXTREMITIES: No gross deformities. Examination right lower extremity. 3 cm diameter Hematoma on the right distal lateral leg. Calf is nontender. No palpable cords. Foot is warm soft pink brisk cap refills strong pedal pulse. Nontender ankle and knee. Calf is warm soft pink no palpable cords. No signs of compartment syndrome. No pain out of portion exam. NEURO: AOx4. Clear speech SKIN: Warm and dry PSYCH: Not anxious, is cooperative Initial Vital Signs Initial Vital Signs: Vital Signs Temperature 97.8 F 02/17/25 08:53 Pulse Rate 90 02/17/25 08:53 Respiratory Rate 16 02/17/25 08:53 Blood Pressure 138/84 02/17/25 08:53 Pulse Oximetry 97 02/17/25 08:53 Oxygen Delivery Method Room Air 02/17/25 08:53 Course Orders Ordered: ED Orders 02/17/25 08:58 US periph venous low extrem rt Stat Vital Signs Vital signs: Vital Signs - 8 hr 02/17/25 08:53 02/17/25 09:18 02/17/25 09:18 Temperature 97.8 F Pulse Rate 90 85 Respiratory Rate 16 Blood Pressure 138/84 136/76 Pulse Oximetry 97 97 Oxygen Delivery Method Room Air 02/17/25 09:30 02/17/25 09:38 02/17/25 09:42 Temperature Pulse Rate 86 86 Respiratory Rate Blood Pressure 142/81 H Pulse Oximetry 96 97 97 Oxygen Delivery Method Room Air MDM - Extremity Injury (Lower) Imaging Data Extremity x-ray #1: Radiologist's Impression: [address] [address] XRay Report Signed Patient: Hung Redman MR#: [id number] : 1945 Acct:[id number] Age/Sex: 80 / M Date of Service: 02/16/25 Loc: ED Accession Number: [id number] Procedure: XR tibia fibula RT 2V Ordering Provider: Colin Figueredo MD PROCEDURE: XR TIBIA FUBULA RT 2V INDICATIONS: injury, blunt TECHNIQUE: 2 views of the tibia and fibula were acquired. COMPARISON: None. FINDINGS: Bones: No fractures or dislocations. No suspicious bony lesions. Soft tissues: No suspicious soft tissue calcifications or masses. IMPRESSION: No gross acute right lower leg fracture or dislocation. No soft tissue abnormalities. Dictated by: Wiley Lo M.D. on 02/16/2025 at 19:28 Approved by: Wiley Lo M.D. on 02/16/2025 at 19:28 US - DVT: Radiologist's Impression: [address] [address] Ultrasound Report Signed Patient: Hung Redman MR#: [id number] : 1945 Acct:[id number] Age/Sex: 80 / M Date of Service: 02/17/25 Loc: ED Accession Number: [id number] Procedure: US periph venous low extrem rt Ordering Provider: Rajesh Valle MD PROCEDURE: US PERIPH VENOUS LOW EXTREM RT INDICATIONS: Right leg/calf injury swelling TECHNIQUE: Real-time imaging, as well as color and pulse Doppler interrogation, were performed of the lower extremity deep veins from the inguinal ligament to the popliteal fossa, with documentation of the visualized calf veins. COMPARISON: None. FINDINGS: The common femoral, femoral, popliteal, and the visualized calf veins are normally compressible, and free of intraluminal thrombus. Color and pulse Doppler demonstrate normal phasic intraluminal flow. There is normal augmentation response to distal compression maneuver. IMPRESSION: No findings of lower extremity deep venous thrombosis. Dictated by: Wiley Lo M.D. on 02/17/2025 at 9:21 Approved by: Wiley Lo M.D. on 02/17/2025 at 9:23 MDM Narrative Medical decision making narrative: Patient here with . Complains of posterior left knee superior calf pain for the past 2 weeks. Patient has been doing a lot of walking [place] the boat ramp and boat dock, preparing their boat. No fall or injury. Has baseline neuropathy to the legs she states which is not new. Denies denies any back pain. No prior history of blood clots in legs or lungs. No shortness of breath no chest pain. Knee to toes exposed After history and exam, exam is reassuring. No blood indicated. Patient had x-ray of tib-fib yesterday and no acute finding. Ultrasound right leg will be done. [facility] Medical records reviewed: X-ray right tib-fib done yesterday Differential considered: Includes but not limited to hematoma DVT SVT contusion Imaging studies independently reviewed: X-ray right tib-fib done yesterday no acute bony finding, ultrasound right leg no acute finding Consultations: None indicated this time Re-evaluations: 9:30 a.m. Reviewed results with patient, exam and imaging studies are reassuring. Recommended not taking Eliquis today. May resume tomorrow. Ice elevate leg when at rest. Tylenol for pain and swelling. Return precautions reviewed. He desires discharge home. Discussion: Appropriate for discharge home. Exam and imaging studies are reassuring. Return precautions reviewed with patient. He desires discharge home. Diagnosis: Right leg hematoma Discharge Plan Departure Patient Disposition: Home Clinical Impression: Hematoma of right lower leg Instructions: DI for Contusion, DI for Hematoma (Bruise) Activity Restrictions/Additional Instructions: Your exam and imaging studies are reassuring. You likely have a bruise from bumping your leg. This is due to taking Eliquis. Please do not take your Eliquis today or tonight. May resume tomorrow. Continue Tylenol for pain. Elevate your leg when at rest to reduce swelling. See family doctor this week for re-evaluation. Return if worse if any questions or concerns Prescriptions: No Action atenolol 25 mg tablet 25 mg PO BID omeprazole 40 mg capsule,delayed release(DR/EC) 40 mg PO DAILY oxycodone-acetaminophen 5-325 mg tablet 1 tab PO TID PRN (Reason: Pain, Moderate) Patient Comments: TK 1 T PO TID FOR 30 DAYS PRN P tamsulosin 0.4 mg capsule,extended release 24hr 0.4 mg PO DAILY bupropion HCl 150 mg tablet extended release 24 hr 150 mg PO DAILY escitalopram oxalate 20 mg tablet 20 mg PO DAILY diltiazem HCl 180 mg Capsule,Extended Release 24hr 180 mg PO DAILY Qty: 30 0RF apixaban [Eliquis] 5 mg Tablet 5 mg PO BID Qty: 60 0RF cyclobenzaprine 10 mg tablet 10 mg PO BEDTIME PRN (Reason: muscle spasm) Qty: 14 0RF lidocaine 5 % adhesive patch,medicated 1 patch topical DAILY Qty: 15 0RF Rx Instructions: leave on most painful area for up to 12 hrs Stand Alone Forms: Patient Portal/API
[2025-02-17 09:18] VITALS: BP 136/76; PULSE 85; O2SAT 97
[2025-02-17 09:30] VITALS: PULSE 86; O2SAT 96
[2025-02-17 09:38] VITALS: O2SAT 97
[2025-02-17 09:42] VITALS: BP 142/81; PULSE 86; O2SAT 97
== END 2025-02-17 09:52 | disposition home or self-care (01) ==
PROVIDERS: Emergency Provider Emergency Medicine
DX: S80.11XD Contusion of right lower leg, subsequent encounter (principal); Z79.01 Long term (current) use of anticoagulants
CPT/HCPCS: 93971; 99281; 99283

== ENCOUNTER 2025-02-23 10:02 | Emergency (ER) | payer MEDICARE, OTHER, SELFPAY ==
[2025-02-23] VITALS (10 sets, daily range): BP systolic 128–148; BP diastolic 60–89; PULSE 46–98; RESP 16–20; TEMP 36.4–36.8; O2SAT 93–98; BMI 28.8
--- NOTE | 2025-02-23 | DI.CT.S_ITS ---
PROCEDURE: CT ANGIO ABD AORTA RUNOFF INDICATIONS: Hematoma, pseudoaneurysm, arterial bleed? TECHNIQUE: After the administration of intravenous contrast, 2.5 mm sections acquired from L1 to the feet, with optional delayed image acquisition from the knees to the feet. 3- dimensional maximum intensity projection (MIP) coronal and sagittal reformats, and/or 3- dimensional volume rendering reformatting was then performed. For radiation dose reduction, the following was used: automated exposure control. COMPARISON: [facility], , [facility] VENOUS LOW EXTREM RT, 02/23/2025, 11:02. FINDINGS: Image Quality: Diagnostic. Abdominal aorta: Moderate aortic atherosclerotic calcifications. No abdominal aortic aneurysm or dissection. Splanchnic vessels: Celiac trunk origin is not included. Mild atherosclerotic calcifications at the origins of the SMA and ADAN without significant stenosis. Atherosclerotic calcifications are seen at the origins of the renal arteries without significant stenosis Right lower extremity: No hemodynamically significant stenosis in the common, internal, or external iliac arteries or the common femoral, superficial femoral, or deep femoral arteries. Popliteal artery and tibioperoneal trunk are patent. Anterior tibial artery is patent proximally. There is luminal irregularity and narrowing in the mid to distal portions of the anterior tibial artery although three-vessel runoff to the foot is seen. Left lower extremity: No hemodynamically significant stenosis in the common, internal, or external iliac arteries or the common femoral, superficial femoral, or deep femoral arteries. Popliteal artery and tibioperoneal trunk are patent. Anterior tibial artery demonstrates similar irregularities and narrowing although there is three-vessel runoff to the foot. Lower Chest: No significant findings. ABDOMEN: Liver: No solid mass. Gallbladder: No radiopaque gallstones or wall thickening. Biliary ducts: No biliary dilation. Pancreas: No ductal dilation. Spleen: Size is within normal limits. Adrenal Glands: No adrenal nodules. Kidneys and Ureters: Contrast material is seen in the renal collecting system. Correlate for prior contrast load. Multiple bilateral renal cysts. No hydronephrosis. No solid mass. Stomach and Bowel: Included bowel demonstrates no acute abnormality. No signs of bowel obstruction. No focal wall thickening. Colonic diverticulosis. Peritoneum: No abnormal intraperitoneal fluid. No free air. Ventral Wall: No hernia. Abdominal Nodes: No retroperitoneal or mesenteric adenopathy by size criteria. Vessels: Aorta and inferior vena cava are normal in size. PELVIS: Pelvic Organs: Unremarkable. Bladder: Multiple posterior bladder diverticula. Bladder is opacified with contrast material.. Pelvic Nodes: No enlarged lymph nodes. Miscellaneous: Small bilateral fat containing inguinal hernias. Bones and soft tissues: No aggressive osseous abnormality. Multilevel degenerative changes in the spine and in the hips and knees. Benign enchondroma in the right distal femur. Peripherally enhancing fluid collection is seen in the subcutaneous tissues at the right prepatellar region measuring approximately 5.8 x 1.3 x 4.2 cm. More ill-defined soft tissue density or fluid is seen in the subcutaneous tissues superior medial to the patella t with surrounding confluent subcutaneous edema at both regions. A 5 mm hyperdense focus is seen in the more superior medial area of edema adjacent to the medial patella that appears very slightly larger on more delayed images. The adjacent vastus medialis muscle and quadriceps tendon appear grossly intact. However, the tendons, ligaments, and articular cartilages are not well evaluated with CT. No significant right knee effusion. Subcutaneous fluid collection is seen along the lateral aspect of the distal right lower leg measuring approximately 3.7 x 1.8 by 3.6 cm. There is some arterial flow on initial images that mildly increases on more delayed phase images suspicious for extravasation. The adjacent lateral and anterior compartment musculature appears to be intact without significant intramuscular fascial edema. No soft tissue gas. Mild nonspecific subcutaneous edema in the right foot. IMPRESSION: 1. Subcutaneous fluid collection at the lateral aspect of the right distal lower leg is seen with suspected arterial contrast extravasation. However, contrast material is seen in the renal collecting systems from unknown prior contrast bolus, and venous or other delayed contrast extravasation is not excluded. 2. Additional subcutaneous fluid collection anterior medial to the right patella is seen with possible focal mild arterial contrast extravasation. 3. Peripherally enhancing fluid collection in the prepatellar bursa may represent prepatellar bursitis and or hemorrhage, and superimposed infection is not excluded. Approved by: Param Cohen M.D. on 02/23/2025 at 20:37
--- NOTE | 2025-02-23 10:49 | DI.US.S_ITS ---
PROCEDURE: US PERIP VENOUS LOW EXTREM RT INDICATIONS: hematoma TECHNIQUE: Real-time imaging, as well as color and pulse Doppler interrogation, were performed of the lower extremity deep veins from the inguinal ligament to the popliteal fossa, with documentation of the visualized calf veins. COMPARISON: [facility], , [facility] VENOUS LOW EXTREM RT, 02/17/2025, 9:08. FINDINGS: The common femoral, femoral, popliteal, and the visualized calf veins are normally compressible, and free of intraluminal thrombus. Color and pulse Doppler demonstrate normal phasic intraluminal flow. There is normal augmentation response to distal compression maneuver. Fluid collection is seen stable in size measuring 3.7 x 3.1 x 1.6 cm. There is however arterial flow connecting to a small calf artery. IMPRESSION: No findings of lower extremity deep venous thrombosis. Fluid collection again seen, however there is arterialized flow connecting to a calf artery, this could actually represent a pseudoaneurysm. If further imaging is needed, consider CT angiogram. Dictated by: Ruperto Gibbons M.D. on 02/23/2025 at 11:30 Approved by: Ruperto Gibbons M.D. on 02/23/2025 at 11:32
--- NOTE | 2025-02-23 13:10 | ED.LOWEXIN ---
HPI - Extremity Injury (Lower) <Carlos Enrique Yost PA-C - Last Filed: 02/23/25 19:08> General Chief Complaint: Extremity Injury, Lower Stated Complaint: hematoma right leg not getting better Time Seen by Provider: 02/23/25 11:29 History of Present Illness HPI Narrative: 80-year-old male with past medical history atrial fibrillation, on Eliquis returns to the ED for a worsening hematoma to the right lower leg. Patient was seen in the ED on 02/17/2025 for the same complaint, which was a hematoma sustained when patient bumped his leg against some furniture. Patient was asked to hold Eliquis for a day for bleeding cessation, resume after a day. Patient states that when he did that, his symptoms improved, however over the last 2 days the hematoma has been feeling more painful and swollen. No numbness, tingling, weakness. Patient also endorses that the chronic right lower leg swelling is also worse. No chest pain, shortness of breath. Related Data Home Medications ?Medication ?Instructions ?Recorded ?Confirmed atenolol 25 mg tablet 25 mg PO BID 04/06/18 04/06/18 bupropion HCl 150 mg 24 hr tablet, 150 mg PO DAILY 04/06/18 04/06/18 extended release escitalopram oxalate 20 mg tablet 20 mg PO DAILY 04/06/18 04/06/18 omeprazole 40 mg capsule,delayed 40 mg PO DAILY 04/06/18 04/06/18 release oxycodone-acetaminophen 5 mg-325 1 tab PO TID PRN Pain, Moderate 04/06/18 04/06/18 mg tablet tamsulosin 0.4 mg capsule 0.4 mg PO DAILY 04/06/18 04/06/18 Previous Rx's ?Medication ?Instructions ?Recorded apixaban 5 mg tablet (Eliquis) 5 mg PO BID #60 tabs 04/07/18 diltiazem HCl 180 mg 180 mg PO DAILY #30 caps 04/07/18 capsule,extended release 24 hr cyclobenzaprine 10 mg tablet 10 mg PO BEDTIME PRN muscle spasm 05/12/24 #14 tabs lidocaine 5 % topical patch 1 patch topical DAILY #15 ea 05/12/24 Allergies Allergy/AdvReac Type Severity Reaction Status Date / Time latex Allergy Intermediate Rash Verified 02/17/25 08:54 erythromycin base Allergy Unknown Verified 02/17/25 08:54 Review of Systems <Carlos Enrique Yost PA-C - Last Filed: 02/23/25 19:08> Constitutional Constitutional: Denies chills, Denies fatigue, Denies fever(s), Denies frequent falls, Denies lethargy and Denies weakness Eyes Eyes: Denies change in vision, Denies eye discharge, Denies irritation and Denies loss of vision ENT Ears, Nose, Mouth, and Throat: Denies change in voice, Denies dizziness, Denies neck pain, Denies sore throat and Denies throat swelling Cardiovascular Cardiovascular: Denies chest pain, Denies irregular heart rhythm, Denies lightheadedness, Denies palpitations, Denies dyspnea, Denies dyspnea on exertion and Denies orthopnea Respiratory Respiratory: Denies cough, Denies dyspnea, Denies dyspnea on exertion and Denies wheezing Gastrointestinal Gastrointestinal: Denies abdominal pain, Denies change in bowel habits, Denies diarrhea, Denies nausea and Denies vomiting Musculoskeletal Musculoskeletal: Denies neck pain and Denies numbness Comments: Right lower leg swelling, pain Integumentary/Breasts Skin/Breast: Denies pruritus, Denies erythema, Denies rash and Denies wounds Neurologic Neurologic: Denies behavioral changes, Denies confusion, Denies dizziness, Denies frequent falls, Denies loss of vision, Denies numbness and Denies weakness Psychiatric Psychiatric: Denies anxiety, Denies behavioral changes, Denies confusion, Denies depression, Denies homicidal ideation and Denies suicidal ideation Endocrine Endocrine: Denies fatigue, Denies flushing and Denies palpitations Hematologic/Lymphatic Hematologic/Lymphatic: Denies easy bruising Allergic/Immunologic Allergic/Immunologic: Denies urticaria, Denies throat swelling and Denies wheezing Patient History <Carlos Enrique Yost PA-C - Last Filed: 02/23/25 19:08> Medical History (Updated 02/23/25 @ 23:18 by Gwen Lamas MD) Shingles Chronic shoulder pain Depression PMR (polymyalgia rheumatica) [place] on CPAP Mckeon's neuroma Kidney stone Gout History of cardioversion Atrial fibrillation Social History household members: spouse alcohol intake frequency: 0-2 drinks per day Exam <Carlos Enrique Yost PA-C - Last Filed: 02/23/25 19:08> Narrative Exam Narrative: Const General:?cooperative, healthy appearing and comfortable [facility] Head:?normal to inspection Ears:?hearing grossly normal bilaterally Nose:?external nose normal Face and sinus:?normal facial exam and sinuses nontender Mouth:?oral mucosae normal Throat:?posterior oropharynx normal Eyes General:?appearance normal, both eyes and all related structures Neck Neck:?normal visual inspection and no lymphadenopathy noted Resp Effort & Inspection:?normal respiratory effort Auscultation:?clear to auscultation bilaterally Cardio Rate:?regular rate Rhythm:?regular rhythm Musculoskeletal/integumentary There is generalized swelling of the right lower leg from the knee down to the feet. There is a hematoma like swelling to the lower, lateral calf that is erythematous, tender to touch. Compartments are soft. Pedal pulses intact. Neurovascularly intact. Patient is able to bear weight and walk. Neuro General:?patient alert, patient awake and patient oriented x3 Initial Vital Signs Initial Vital Signs: Vital Signs Temperature 97.6 F 02/23/25 10:36 Pulse Rate 90 02/23/25 10:36 Respiratory Rate 16 02/23/25 10:36 Blood Pressure 147/65 H 02/23/25 10:36 Pulse Oximetry 98 02/23/25 10:36 Oxygen Delivery Method Room Air 02/23/25 10:36 <Gwen Lamas MD - Last Filed: 02/23/25 23:18> Initial Vital Signs Initial Vital Signs: Vital Signs Temperature 97.6 F 02/23/25 10:36 Pulse Rate 90 02/23/25 10:36 Respiratory Rate 16 02/23/25 10:36 Blood Pressure 147/65 H 02/23/25 10:36 Pulse Oximetry 98 02/23/25 10:36 Oxygen Delivery Method Room Air 02/23/25 10:36 Course <Carlos Enrique Yost PA-C - Last Filed: 02/23/25 19:08> Orders Ordered: ED Orders 02/23/25 10:49 perip venous low extrem rt Stat 02/23/25 13:35 CBC Auto Diff [Complete Blood Count AUTO DIFF] Stat CMP [Comprehensive Metabolic Panel] Stat CRP [C-Reactive Protein Quant] Stat ESR [Erythrocyte Sedimentation Rate] Stat PT [Prothrombin Time INR] Stat PTT [PTT Partial Thromboplastin Tom] Stat Procalcitonin Stat Vital Signs Vital signs: Vital Signs - 8 hr 02/23/25 20:19 02/23/25 21:08 02/23/25 21:09 Temperature 98.3 F Pulse Rate 96 H 64 Respiratory Rate 20 Blood Pressure 128/60 142/87 H Pulse Oximetry 96 93 Oxygen Delivery Method Room Air 02/23/25 21:09 02/23/25 21:33 02/23/25 21:33 Temperature Pulse Rate 94 H 46 L Respiratory Rate Blood Pressure 148/83 H Pulse Oximetry 96 96 Oxygen Delivery Method <Gwen Lamas MD - Last Filed: 02/23/25 23:18> Orders Ordered: ED Orders 02/23/25 10:49 US periph venous low extrem rt Stat 02/23/25 13:35 CBC Auto Diff [Complete Blood Count AUTO DIFF] Stat CMP [Comprehensive Metabolic Panel] Stat CRP [C-Reactive Protein Quant] Stat ESR [Erythrocyte Sedimentation Rate] Stat PT [Prothrombin Time INR] Stat PTT [PTT Partial Thromboplastin Tom] Stat Procalcitonin Stat Vital Signs Vital signs: Vital Signs - 8 hr 02/23/25 20:19 02/23/25 21:08 02/23/25 21:09 Temperature 98.3 F Pulse Rate 96 H 64 Respiratory Rate 20 Blood Pressure 128/60 142/87 H Pulse Oximetry 96 93 Oxygen Delivery Method Room Air 02/23/25 21:09 02/23/25 21:33 02/23/25 21:33 Temperature Pulse Rate 94 H 46 L Respiratory Rate Blood Pressure 148/83 H Pulse Oximetry 96 96 Oxygen Delivery Method MDM - Extremity Injury (Lower) <Carlos Enrique Yost PA-C - Last Filed: 02/23/25 19:08> Lab Data 02/23/25 13:35 02/23/25 13:35 Labs: Lab Results 02/23/25 Range/Units 13:35 WBC 9.0 (4.5-11.0) X10^3/uL RBC 3.85 L (4.5-5.9) X10^6/uL Hgb 11.9 L (13.5-17.5) g/dL Hct 36.2 L (41-53) % MCV 94.0 (80-100) fL MCH 31.0 (26-34) PG MCHC 33.0 (30-36) % RDW 15.0 H (11.6-14.8) % Plt Count 168 (150-400) X10^3/uL Neut % (Auto) 69.2 (50-75) % Lymph % (Auto) 17.7 L (25-40) % [place] % (Auto) 8.5 (3-14) % Eos % (Auto) 3.8 (2-4) % Baso % (Auto) 0.8 (0-2) % Neut # (Auto) 6300 (1875-5982) /uL Lymph # (Auto) 1600 (1780-1973) /uL [place] # (Auto) 800 (0-900) /uL Eos # (Auto) 300 (0-450) /uL Baso # (Auto) 100 (0-100) /uL ESR 32 H (0-15) MM/HR PT 16.2 H (9.4-12.5) SECONDS INR 1.4 H (0.9-1.3) APTT 38 H (25.1-36.5) SECONDS Sodium 139 (137-145) mmol/L Potassium 4.4 (3.4-5.1) mmol/L Chloride 105 (98-107) mmol/L Carbon Dioxide 24 (22-32) mmol/L BUN 18 (9-20) mg/dL Creatinine 0.89 (0.66-1.25) mg/dL Estimated GFR > 60 (>60) mL/min BUN/Creatinine Ratio 20.2 (6-22) Glucose 103 H (70-99) mg/dL Calcium 9.3 (8.4-10.2) mg/dL Total Bilirubin 0.6 (0.2-1.3) mg/dL AST 27 (17-59) IU/L ALT 19 (<50) IU/L Alkaline Phosphatase 69 (38-126) U/L C-Reactive Protein < 0.5 (<1.0) mg/dL Total Protein 7.9 (6.3-8.2) g/dL Albumin 4.6 (3.5-5.0) g/dL Globulin 3.3 (1.7-4.1) g/dL Albumin/Globulin Ratio 1.4 (1.0-2.8) Procalcitonin 0.037 (<0.5) ng/mL MDM Narrative Medical decision making narrative: 80-year-old male with past medical history atrial fibrillation, on Eliquis returns to the ED for a worsening hematoma to the right lower leg. Concern for actively bleeding hematoma versus resolving hematoma versus cellulitis versus abscess versus other. Ultrasound was obtained which shows no findings of lower extremity deep venous thrombosis. Fluid collection again seen, however there is arterialized flow connecting to a cough artery. This could actually represent a pseudoaneurysm. Labs and CT angiogram ordered for further characterization. Will reassess. Still awaiting CT angio. Patient continues to be stable and neurovascularly intact. Patient is signed out to Dr. Gwen Lamas at this time. Medical records reviewed: Yes <Gwen Lamas MD - Last Filed: 02/23/25 23:18> Lab Data Labs: Lab Results 02/23/25 Range/Units 13:35 WBC 9.0 (4.5-11.0) X10^3/uL RBC 3.85 L (4.5-5.9) X10^6/uL Hgb 11.9 L (13.5-17.5) g/dL Hct 36.2 L (41-53) % MCV 94.0 (80-100) fL MCH 31.0 (26-34) PG MCHC 33.0 (30-36) % RDW 15.0 H (11.6-14.8) % Plt Count 168 (150-400) X10^3/uL Neut % (Auto) 69.2 (50-75) % Lymph % (Auto) 17.7 L (25-40) % [place] % (Auto) 8.5 (3-14) % Eos % (Auto) 3.8 (2-4) % Baso % (Auto) 0.8 (0-2) % Neut # (Auto) 6300 (7113-2278) /uL Lymph # (Auto) 1600 (2218-5016) /uL [place] # (Auto) 800 (0-900) /uL Eos # (Auto) 300 (0-450) /uL Baso # (Auto) 100 (0-100) /uL ESR 32 H (0-15) MM/HR PT 16.2 H (9.4-12.5) SECONDS INR 1.4 H (0.9-1.3) APTT 38 H (25.1-36.5) SECONDS Sodium 139 (137-145) mmol/L Potassium 4.4 (3.4-5.1) mmol/L Chloride 105 (98-107) mmol/L Carbon Dioxide 24 (22-32) mmol/L BUN 18 (9-20) mg/dL Creatinine 0.89 (0.66-1.25) mg/dL Estimated GFR > 60 (>60) mL/min BUN/Creatinine Ratio 20.2 (6-22) Glucose 103 H (70-99) mg/dL Calcium 9.3 (8.4-10.2) mg/dL Total Bilirubin 0.6 (0.2-1.3) mg/dL AST 27 (17-59) IU/L ALT 19 (<50) IU/L Alkaline Phosphatase 69 (38-126) U/L C-Reactive Protein < 0.5 (<1.0) mg/dL Total Protein 7.9 (6.3-8.2) g/dL Albumin 4.6 (3.5-5.0) g/dL Globulin 3.3 (1.7-4.1) g/dL Albumin/Globulin Ratio 1.4 (1.0-2.8) Procalcitonin 0.037 (<0.5) ng/mL MDM Narrative Medical decision making narrative: 80-year-old male with past medical history atrial fibrillation, on Eliquis returns to the ED for a worsening hematoma to the right lower leg. Concern for actively bleeding hematoma versus resolving hematoma versus cellulitis versus abscess versus other. Ultrasound was obtained which shows no findings of lower extremity deep venous thrombosis. Fluid collection again seen, however there is arterialized flow connecting to a cough artery. This could actually represent a pseudoaneurysm. Labs and CT angiogram ordered for further characterization. Will reassess. Still awaiting CT angio. Patient continues to be stable and neurovascularly intact. Patient is signed out to Dr. Gwen Lamas at this time. Medical records reviewed: Yes Dr Lamas: Care is assumed, patient is independently evaluated, chart is reviewed Right lower calf is significantly edematous, there was an area where the underlying contusion is appreciated. Some bruising over the dorsum of the foot, mild edema over the prepatellar area that he states has been waxing and waning over the last 3 months. No evidence of DVT. Vascular study does not show acute vascular abnormality, occlusion or dramatic arterial extravasation. Pain is minimal and mostly related to swelling. We talked about buying compression socks for comfort, to reduce the swelling and prevent any additional bleeding. He is given an Darren wrap, applied by myself, neurovascularly intact pre and post placement and with the additional mild compression he finds that his foot is much more comfortable. Discussed anticipated increasing swelling, discoloration from bruising as the blood from this clot is metabolized. Pain is minimal at this time, there was no indication for further workup or hospitalization, he is safe for discharge Discharge Plan Departure Patient Disposition: Home Clinical Impression: Hematoma of right lower leg Instructions: DI for Hematoma (Bruise) Activity Restrictions/Additional Instructions: Thank you for coming in today So you clearly have had a bit more bleeding into your lower calf, there is an area that is a moderate sized blood clot. This is causing the extra swelling and reducing blood flow back up your leg. There is no evidence of severe arterial injury and no evidence of deep venous thrombosis I placed an Darren wrap in the emergency department to help with pain control. The swelling by the end of the day is often the most troublesome part of this. Providing some counter pressure can often times help. We talked about buying some compression socks to again help with the swelling. When you go to look for compression socks they do not need to be expensive. I would recommend wearing them during the day and taking them off at night. Keeping your leg elevated during the day can also help with swelling It is likely going to take up to a month for all of the bruising and swelling to finally go away. You are going to notice more and more bruising around your feet and toes as the blood works its way out of this larger clot in your calf. If you find that you are getting worse or develop any new symptoms, please feel free to return to the emergency department for further evaluation. Prescriptions: No Action atenolol 25 mg tablet 25 mg PO BID omeprazole 40 mg capsule,delayed release(DR/EC) 40 mg PO DAILY oxycodone-acetaminophen 5-325 mg tablet 1 tab PO TID PRN (Reason: Pain, Moderate) Patient Comments: TK 1 T PO TID FOR 30 DAYS PRN P tamsulosin 0.4 mg capsule,extended release 24hr 0.4 mg PO DAILY bupropion HCl 150 mg tablet extended release 24 hr 150 mg PO DAILY escitalopram oxalate 20 mg tablet 20 mg PO DAILY diltiazem HCl 180 mg Capsule,Extended Release 24hr 180 mg PO DAILY Qty: 30 0RF apixaban [Eliquis] 5 mg Tablet 5 mg PO BID Qty: 60 0RF cyclobenzaprine 10 mg tablet 10 mg PO BEDTIME PRN (Reason: muscle spasm) Qty: 14 0RF lidocaine 5 % adhesive patch,medicated 1 patch topical DAILY Qty: 15 0RF Rx Instructions: leave on most painful area for up to 12 hrs Stand Alone Forms: Patient Portal/API
[2025-02-23 13:50] LABS: Add Manual Diff / Slide Review NO; Basophils Absolute Auto 100 /uL (0-100); Basophils Percent Auto 0.8 % (0-2); Eosinophils Absolute Auto 300 /uL (0-450); Eosinophils Percent Auto 3.8 % (2-4); Hematocrit 36.2 % (41-53); Hemoglobin 11.9 g/dL (13.5-17.5); Lymphocytes Absolute Auto 1600 /uL (1100-4500); Lymphocytes Percent Auto 17.7 % (25-40); Monocytes Absolute Auto 800 /uL (0-900); Monocytes Percent Auto 8.5 % (3-14); Neutrophils Absolute Auto 6300 /uL (1500-7000); Neutrophils Percent Auto 69.2 % (50-75); Platelet Count 168 X10^3/uL (150-400); Red Blood Cell Count 3.85 X10^6/uL (4.5-5.9)
[2025-02-23 13:58] LABS: INR 1.4 (0.9-1.3); Prothrombin Time 16.2 SECONDS (9.4-12.5)
[2025-02-23 14:01] LABS: PTT Partial Thromboplastin Tim 38 SECONDS (25.1-36.5)
[2025-02-23 14:07] LABS: Alanine Aminotransferase 19 IU/L (<50); Albumin 4.6 g/dL (3.5-5.0); Albumin Globulin Ratio 1.4 (1.0-2.8); Alkaline Phosphatase 69 U/L (38-126); Aspartate Aminotransferase 27 IU/L (17-59); BUN Creatinine Ratio 20.2 (6-22); Bilirubin Total 0.6 mg/dL (0.2-1.3); Blood Urea Nitrogen 18 mg/dL (9-20); Calcium 9.3 mg/dL (8.4-10.2); Carbon Dioxide 24 mmol/L (22-32); Chloride 105 mmol/L (98-107); Estimated Glomerular Filt Rate > 60 mL/min (>60); Globulin 3.3 g/dL (1.7-4.1); Glucose 103 mg/dL (70-99); HEMOLYSIS < 15 (0-50); Potassium 4.4 mmol/L (3.4-5.1); Sodium 139 mmol/L (137-145); Total Protein 7.9 g/dL (6.3-8.2)
[2025-02-23 14:09] LABS: C-Reactive Protein Quant < 0.5 mg/dL (<1.0); Erythrocyte Sedimentation Rate 32 MM/HR (0-15)
[2025-02-23 14:23] LABS: Procalcitonin 0.037 ng/mL (<0.5)
== END 2025-02-23 23:39 | disposition home or self-care (01) ==
PROVIDERS: Student in an Organized Health Care Education/Training Program; Emergency Provider Emergency Medicine
DX: S80.11XD Contusion of right lower leg, subsequent encounter (principal); R60.0 Localized edema; Z79.01 Long term (current) use of anticoagulants
CPT/HCPCS: 75635; 80053; 84145; 85025; 85610; 85651; 85730; 86140; 93971; 99281; 99284; Q9967